=== PATIENT | female | born 1950 | race Two or more races ===

== ENCOUNTER 2023-07-09 09:18 | Inpatient (IN) | payer MEDICARE ==
[~2023-07-09] VITALS: Ht 157.5 cm; Wt 91.9 kg
[2023-07-09] VITALS (40 sets, daily range): BP systolic 90–132; BP diastolic 37–51; PULSE 61–107; RESP 19–41; TEMP 95.2–99.7; O2SAT 94–100
[2023-07-09 10:15] LABS: Basophils # (auto) 0 10 ^3/uL (0-0.2); Basophils % (auto) 0.1 % (0.0-2.0); Eosinophils # (auto) 0 10 ^3/uL (0-0.8); Hematocrit 31.7 % (36.0-46.0); Hemoglobin 10.3 g/dL (12.2-16.2); Lymphocytes # (auto) 0.8 10 ^3/uL (0.4-5.4); Lymphocytes % (auto) 5.4 % (10.0-50.0); Mean Corpuscular Hemoglobin 29.5 pg (28.0-32.0); Mean Corpuscular Hgb Conc. 32.6 g/dL (32.0-36.0); Mean Corpuscular Volume 90.6 fL (80.0-100.0); Monocytes # (auto) 1.5 10 ^3/uL (0-1.3); Monocytes % (auto) 10.3 % (0.0-12.0); Neutrophils # (auto) 11.8 10 ^3/uL (1.6-8.6); Neutrophils % (auto) 84.2 % (37.0-80.0); Red Cell Distribution Width 14.9 % (11.8-14.3); White Blood Cell 14.1 10^3/uL (4.4-10.8)
[2023-07-09 10:31] LABS: Lactic Acid w/Reflex 8.8 mmol/L (0.4-2.0)
[2023-07-09 10:55] LABS: Alanine Aminotransferase 16 U/L (7-40); Alkaline Phosphatase 63 U/L (46-116); Anion Gap 25.00001 (5-15); Aspartate Aminotransferase 25 U/L (13-40); BUN/Creatinine Ratio 14.2 (10.0-20.0); Blood Alcohol < 3.0 mg/dL (<10); Calcium 8.4 mg/dL (8.7-10.4); Chloride 92 mmol/L (98-107); Glucose 145 mg/dL (74-106); Magnesium 2.1 mg/dL (1.6-2.6); Sodium 127 mmol/L (136-145)
[2023-07-09 10:56] LABS: Bilirubin, Total 0.4 mg/dL (0.2-1.0); Total Protein 6.3 g/dL (5.7-8.2)
[2023-07-09 11:03] LABS: Blood Urea Nitrogen 110 mg/dL (9-23); Carbon Dioxide < 10 mmol/L (20-30)
[2023-07-09] MEDS ORDERED: DEXTROSE (50%) 50ML SYRG IV ONE (11:15)
[2023-07-09] MEDS ORDERED: SODIUM BICARBONATE 8.4 % INJ 50ML VIAL IV ONE ×3 (11:15→13:30)
[2023-07-09] MEDS ORDERED: PANTOPRAZOLE 40 MG/10 ML VIAL INJ IV ONE ×2 (11:15→14:15)
[2023-07-09] MEDS ORDERED: ALBUTEROL SULF 2.5 MG/0.5ML(0.5%) NEB SOLN NEB ONE (11:15)
[2023-07-09] MEDS ORDERED: SODIUM CHLORIDE 0.9% 2,700 ML IV ONE (11:15)
[2023-07-09] MEDS ORDERED: CALCIUM GLUC 1,000mg/50ml-NS 50 ML IV ONE (11:15)
[2023-07-09] MEDS ORDERED: VANCOMYCIN PER PHARMACY 1,000 MG IV SCH (11:15)
[2023-07-09] MEDS ORDERED: ACETAMINOPHEN 650 MG RECT SUPP PR ONE (11:15)
[2023-07-09] MEDS ORDERED: SODIUM BICARBONATE 8.4% INJ 50ML SYRINGE IV ONE (11:15)
[2023-07-09] MEDS ORDERED: InsuLIN REG 1unit/0.01ml Soln (100units/ml) IV ONE (11:15)
[2023-07-09] MEDS ORDERED: ATROPINE SULF 1 MG/10ml SYR IV ONE (11:30)
[2023-07-09] MEDS ORDERED: PIPERACILLIN-TAZOB 3.375GM 100 ML IV ONE (11:30)
[2023-07-09 11:39] LABS: Acetaminophen < 2.0 UG/ML (10.0-20.0); Salicylate < 3.0 mg/dL (2.8-20.0)
[2023-07-09] MEDS ORDERED: ETOMIDATE (2MG/ML) 20ML VIAL IV ONE (11:45)
[2023-07-09] MEDS ORDERED: SODIUM ZIRCONIUM CYCL 10 GM PAK GT ONE ×2 (11:45→19:30)
[2023-07-09] MEDS ORDERED: ROCURONIUM 10MG/ML 10ML VIAL IV ONE ×3 (11:45→14:15)
[2023-07-09] MEDS ORDERED: VANCOMYCIN 1GM/250ML 250 ML IV ONE (12:00)
[2023-07-09] MEDS: MIDAZOLAM DRIP 50 mg/50mL 50 ML IV SCH ×4 (12:03→22:53)
[2023-07-09 12:15] LABS: Partial Thromboplastin Time 38.2 SEC (24.5-34.5); Prothrombin Time 10.5 sec (9.3-11.8)
[2023-07-09] MEDS: ALBUMIN 25% 50 ML IV ONE ×2 (12:26→16:37)
[2023-07-09] MEDS ORDERED: NOREPINEPHRINE 8 MG/250ML KIT 250 ML IV ONE (12:36)
[2023-07-09] MEDS: NOREPINEPHRINE 8 MG/250ML KIT 250 ML IV SCH ×2 (12:45→21:03)
[2023-07-09] MEDS: VASOPRESSIN 20 UNITS in SODIUM CHL 0.9% 99 ML IV SCH (13:15)
[2023-07-09] MEDS ORDERED: MORPHINE SULFATE INJ 2 MG/ml SYRG IV PRN (13:15)
[2023-07-09] MEDS: EPINEPHrine HCL 250 ML IV SCH (13:15)
[2023-07-09] MEDS ORDERED: VANCOMYCIN PER PHARMACY 0 MG IV SCH (13:15)
[2023-07-09] MEDS ORDERED: NITROGLYCERIN 0.4 MG SL TAB SL PRN (13:15)
[2023-07-09] MEDS ORDERED: DEXTROSE (50%) 50ML SYRG IV PRN (13:15)
[2023-07-09 13:24] LABS: Amphetamine Screen, Urine Neg (NEGATIVE); Barbiturate Scree,Urine Neg (NEGATIVE); Benzodiazephine Screen, Urine Neg (NEGATIVE); Cocaine Screen, Urine Neg (NEGATIVE)
[2023-07-09 13:24] LABS: Base Excess -25.9 mmol/L (-2.0-2.0)
[2023-07-09 13:25] LABS: Cannabinoid Screen, Urine Neg (NEGATIVE); Opiate Scree,Urine Neg (NEGATIVE); Phencyclidine Screen, Urine Neg (NEGATIVE)
[2023-07-09 13:30] LABS: Urine Bacteria NONE SEEN /hpf (None Seen); Urine Blood 1+ /uL (Negative); Urine Clarity Clear (Clear); Urine Color Colorless (Yellow); Urine Hyaline Cast FEW /lpf (0 - 2); Urine Protein, UAD 2+ (Negative); Urine Specific Gravity 1.015 (1.001-1.035); Urine Urobilinogen Normal (Negative); Urine WBC 4 /hpf (0 - 5)
[2023-07-09] MEDS ORDERED: SODIUM BICARBONATE 50ML VIAL 150 ML in D5W 5% 1,000 ML IV ONE (14:00)
[2023-07-09] MEDS: SODIUM BICARBONATE 50ML VIAL 150 ML in D5W 5% 1,000 ML IV SCH (16:41)
[2023-07-09] MEDS: ACCU-CHEK COMFORT CURVE STRIP VI SCH ×2 (16:52→22:09)
[2023-07-09] MEDS: InsuLIN REG 1unit/0.01ml Soln (100units/ml) SC SCH ×2 (16:52→22:19)
[2023-07-09 17:36] LABS: Chloride 95 mmol/L (98-107); Sodium 136 mmol/L (136-145)
[2023-07-09 17:37] LABS: Anion Gap 30 (5-15); Carbon Dioxide 11 mmol/L (20-30)
[2023-07-09 17:38] LABS: Calcium 7.4 mg/dL (8.7-10.4)
[2023-07-09] MEDS ORDERED: LISI40TA16 PO (17:39)
[2023-07-09] MEDS ORDERED: METO25TA5 PO (17:39)
[2023-07-09] MEDS ORDERED: MELO7.5T7 PO (17:39)
[2023-07-09] MEDS ORDERED: AMLO1TAB22 PO (17:39)
[2023-07-09] MEDS ORDERED: METF-370 PO (17:39)
[2023-07-09] MEDS ORDERED: TRAM50TA2 PO (17:39)
[2023-07-09 17:43] LABS: BUN/Creatinine Ratio 11.8 (10.0-20.0); Glucose 246 mg/dL (74-106)
[2023-07-09] MEDS: CEFEPIME 1GM/ 50ML 50 ML IV SCH (17:55)
[2023-07-09 18:22] LABS: Blood Urea Nitrogen 86 mg/dL (9-23); Potassium 5.8 mmol/L (3.5-5.1)
[2023-07-09] MEDS: PROPOFOL 100 ML IV SCH (18:45)
[2023-07-09 18:51] LABS: Base Excess -16.9 mmol/L (-2.0-2.0)
[2023-07-09] MEDS: fentaNYL Drip 2500mCg/250mlNS 250 ML IV SCH (20:43)
[2023-07-09] MEDS ORDERED: PIPERACILLIN-TAZOB 3.375GM 100 ML IV SCH (22:00)
[2023-07-09] MEDS: HYDROCORTISONE SOD SUCC 100 MG/2ML INJ VIAL IV SCH (22:09)
[2023-07-10] VITALS (107 sets, daily range): BP systolic 101–149; BP diastolic 41–64; PULSE 81–106; RESP 10–31; TEMP 97–99.5; O2SAT 92–100
[2023-07-10] MEDS: VASOPRESSIN 20 UNITS in SODIUM CHL 0.9% 99 ML IV SCH ×3 (00:22→22:08)
[2023-07-10] MEDS: MIDAZOLAM DRIP 50 mg/50mL 50 ML IV SCH ×3 (03:13→10:06)
[2023-07-10 04:11] LABS: Basophils # (auto) 0 10 ^3/uL (0-0.2); Basophils % (auto) 0.1 % (0.0-2.0); Eosinophils # (auto) 0 10 ^3/uL (0-0.8); Hematocrit 28.4 % (36.0-46.0); Hemoglobin 9.6 g/dL (12.2-16.2); Lymphocytes # (auto) 0.3 10 ^3/uL (0.4-5.4); Lymphocytes % (auto) 2.1 % (10.0-50.0); Mean Corpuscular Hemoglobin 29.6 pg (28.0-32.0); Mean Corpuscular Hgb Conc. 33.9 g/dL (32.0-36.0); Mean Corpuscular Volume 87.4 fL (80.0-100.0); Monocytes # (auto) 1.4 10 ^3/uL (0-1.3); Monocytes % (auto) 10.5 % (0.0-12.0); Neutrophils # (auto) 11.4 10 ^3/uL (1.6-8.6); Neutrophils % (auto) 87.3 % (37.0-80.0); Nucleated Red Blood Cells % 0.1 %; Red Blood Cells 3.25 10^6/uL (4.0-5.20); Red Cell Distribution Width 14.7 % (11.8-14.3); White Blood Cell 13.1 10^3/uL (4.4-10.8)
[2023-07-10 04:35] LABS: Alanine Aminotransferase 22 U/L (7-40); Albumin 3.6 g/dL (3.2-4.8); Alkaline Phosphatase 57 U/L (46-116); Anion Gap 28 (5-15); Aspartate Aminotransferase 36 U/L (13-40); BUN/Creatinine Ratio 12.2 (10.0-20.0); Carbon Dioxide 15 mmol/L (20-30); Chloride 91 mmol/L (98-107); Glucose 159 mg/dL (74-106); Sodium 134 mmol/L (136-145)
[2023-07-10 04:36] LABS: Bilirubin, Total 0.7 mg/dL (0.2-1.0); Total Protein 5.8 g/dL (5.7-8.2)
[2023-07-10 04:47] LABS: Blood Urea Nitrogen 87 mg/dL (9-23); Potassium 5.8 mmol/L (3.5-5.1)
[2023-07-10] MEDS ORDERED: SODIUM BICARBONATE 8.4 % INJ 50ML VIAL IV ONE (04:53)
[2023-07-10 05:18] LABS: Base Excess -23.7 mmol/L (-2.0-2.0)
[2023-07-10] MEDS: SODIUM BICARBONATE 50ML VIAL 150 ML in D5W 5% 1,000 ML IV SCH ×2 (05:22→12:15)
[2023-07-10] MEDS: ACCU-CHEK COMFORT CURVE STRIP VI SCH ×4 (06:34→21:34)
[2023-07-10] MEDS: InsuLIN REG 1unit/0.01ml Soln (100units/ml) SC SCH ×4 (06:36→21:43)
[2023-07-10 07:06] LABS: Base Excess -7.2 mmol/L (-2.0-2.0)
[2023-07-10] MEDS: PROPOFOL 100 ML IV SCH ×3 (07:13→22:57)
[2023-07-10] MEDS: EPINEPHrine HCL 250 ML IV SCH (07:13)
[2023-07-10] MEDS: HYDROCORTISONE SOD SUCC 100 MG/2ML INJ VIAL IV SCH ×2 (07:43→21:34)
[2023-07-10] MEDS: PANTOPRAZOLE 40 MG/10 ML VIAL INJ IV SCH (07:44)
[2023-07-10] MEDS ORDERED: SODIUM BICARBONATE 8.4% INJ 50ML SYRINGE IV ONE (07:45)
[2023-07-10] MEDS ORDERED: ALBUTEROL SULF 2.5 MG/0.5ML(0.5%) NEB SOLN NEB ONE (07:45)
[2023-07-10] MEDS ORDERED: DEXTROSE (50%) 50ML SYRG IV ONE (07:45)
[2023-07-10] MEDS ORDERED: InsuLIN REG 1unit/0.01ml Soln (100units/ml) IV ONE (07:45)
[2023-07-10] MEDS: CEFEPIME 1GM/ 50ML 50 ML IV SCH (08:15)
[2023-07-10] MEDS ORDERED: SODIUM BICARBONATE 8.4% INJ 50ML SYRINGE ONE (08:19)
[2023-07-10] MEDS ORDERED: ENOXAPARIN SOD 30 MG/0.3 ML SYRINGE SC SCH (10:00)
[2023-07-10] MEDS ORDERED: SODIUM CHLORIDE 0.9% 1,000 ML IV ONE (10:00)
[2023-07-10] MEDS: AMIODARONE HCL 200 MG TAB PO SCH ×2 (11:15→21:35)
[2023-07-10 12:08] LABS: Chloride 92 mmol/L (98-107); Potassium 5.3 mmol/L (3.5-5.1); Sodium 134 mmol/L (136-145)
[2023-07-10 12:09] LABS: Anion Gap 23 (5-15); Calcium 6.6 mg/dL (8.7-10.4); Carbon Dioxide 19 mmol/L (20-30)
[2023-07-10 12:14] LABS: BUN/Creatinine Ratio 10.7 (10.0-20.0); Glucose 198 mg/dL (74-106)
[2023-07-10 12:17] LABS: Blood Urea Nitrogen 73 mg/dL (9-23)
[2023-07-10] MEDS ORDERED: HEPARIN 1,000 UNITS/ml 1ML VIAL IV ONE (13:15)
[2023-07-10] MEDS: fentaNYL Drip 2500mCg/250mlNS 250 ML IV SCH (17:27)
[2023-07-10] MEDS ORDERED: VANCOMYCIN 750mg/250ml 250 ML IV ONE (18:15)
[2023-07-10 18:29] LABS: Base Excess 2.2 mmol/L (-2.0-2.0)
[2023-07-10 19:18] LABS: Chloride 98 mmol/L (98-107); Potassium 3.9 mmol/L (3.5-5.1); Sodium 139 mmol/L (136-145)
[2023-07-10 19:19] LABS: Anion Gap 13 (5-15); Calcium 7.2 mg/dL (8.7-10.4); Carbon Dioxide 28 mmol/L (20-30)
[2023-07-10 19:24] LABS: BUN/Creatinine Ratio 10.4 (10.0-20.0); Blood Urea Nitrogen 39 mg/dL (9-23); Glucose 139 mg/dL (74-106)
[2023-07-11] VITALS (104 sets, daily range): BP systolic 89–193; BP diastolic 36–67; PULSE 57–102; RESP 16–26; TEMP 97.7–99.3; O2SAT 90–100
[2023-07-11] MEDS: SODIUM BICARBONATE 50ML VIAL 150 ML in D5W 5% 1,000 ML IV SCH (03:01)
[2023-07-11] MEDS: fentaNYL Drip 2500mCg/250mlNS 250 ML IV SCH ×2 (03:02→12:58)
[2023-07-11 04:49] LABS: Basophils # (auto) 0 10 ^3/uL (0-0.2); Basophils % (auto) 0.1 % (0.0-2.0); Eosinophils # (auto) 0 10 ^3/uL (0-0.8); Hematocrit 25.5 % (36.0-46.0); Hemoglobin 8.7 g/dL (12.2-16.2); Lymphocytes # (auto) 0.4 10 ^3/uL (0.4-5.4); Lymphocytes % (auto) 4.8 % (10.0-50.0); Mean Corpuscular Volume 85.5 fL (80.0-100.0); Monocytes # (auto) 0.8 10 ^3/uL (0-1.3); Monocytes % (auto) 10.6 % (0.0-12.0); Neutrophils # (auto) 6.4 10 ^3/uL (1.6-8.6); Neutrophils % (auto) 84.5 % (37.0-80.0); Nucleated Red Blood Cells % 0.2 %; Red Blood Cells 2.99 10^6/uL (4.0-5.20); Red Cell Distribution Width 14.7 % (11.8-14.3); White Blood Cell 7.6 10^3/uL (4.4-10.8)
[2023-07-11 04:56] LABS: Alanine Aminotransferase 19 U/L (7-40); Alkaline Phosphatase 55 U/L (46-116); Anion Gap 9 (5-15); Aspartate Aminotransferase 34 U/L (13-40); BUN/Creatinine Ratio 10.9 (10.0-20.0); Bilirubin, Total 1.2 mg/dL (0.2-1.0); Blood Urea Nitrogen 44 mg/dL (9-23); Calcium 6.8 mg/dL (8.5-10.1); Carbon Dioxide 33 mmol/L (20-30); Chloride 96 mmol/L (98-107); Glucose 161 mg/dL (74-106); Potassium 3.9 mmol/L (3.5-5.1); Sodium 138 mmol/L (136-145)
[2023-07-11] MEDS: NOREPINEPHRINE 8 MG/250ML KIT 250 ML IV SCH (05:25)
[2023-07-11] MEDS: PROPOFOL 100 ML IV SCH ×2 (05:25→12:04)
[2023-07-11] MEDS: ACCU-CHEK COMFORT CURVE STRIP VI SCH ×4 (06:37→22:11)
[2023-07-11] MEDS: InsuLIN REG 1unit/0.01ml Soln (100units/ml) SC SCH ×4 (06:45→22:12)
[2023-07-11 08:44] LABS: Base Excess 8.9 mmol/L (-2.0-2.0)
[2023-07-11] MEDS ORDERED: Glucerna 1.2 Cal 1Liter BOTTLE GT SCH (09:30)
[2023-07-11] MEDS: VASOPRESSIN 20 UNITS in SODIUM CHL 0.9% 99 ML IV SCH ×2 (09:43→20:50)
[2023-07-11 10:16] LABS: Hepatitis B Surface Antibody Negative (Negative)
[2023-07-11] MEDS: PANTOPRAZOLE 40 MG/10 ML VIAL INJ IV SCH (10:22)
[2023-07-11] MEDS: LINEZOLID 600MG/300ML 300 ML IV SCH ×2 (10:22→22:06)
[2023-07-11] MEDS: CEFEPIME 1GM/ 50ML 50 ML IV SCH (10:22)
[2023-07-11] MEDS: HYDROCORTISONE SOD SUCC 100 MG/2ML INJ VIAL IV SCH ×2 (10:22→22:06)
[2023-07-11 10:28] LABS: Hepatitis B Surface Antigen Negative (Negative)
[2023-07-11] MEDS: HEPARIN SODIUM (PORCINE) 5000 UNITS/ML 1ML VIAL SC SCH ×2 (10:29→22:08)
[2023-07-11] MEDS: MIDAZOLAM DRIP 50 mg/50mL 50 ML IV SCH (11:45)
[2023-07-11] MEDS: FREE WATER GT SCH ×2 (12:08→17:21)
[2023-07-11] MEDS ORDERED: SODIUM CHL 0.9% 1000 ML BAG XX ONE (12:15)
[2023-07-11 12:41] LABS: Uric Acid 6.4 mg/dL (3.1-7.8)
[2023-07-11 12:44] LABS: Phosphorus 4.7 mg/dL (2.4-5.1)
[2023-07-11] MEDS: EPINEPHrine HCL 250 ML IV SCH (13:15)
[2023-07-11 13:45] LABS: % Iron Saturation 13.8 % (15-50)
[2023-07-11] MEDS ORDERED: ALBUMIN 25% 100 ML IV PRN (16:15)
[2023-07-11] MEDS ORDERED: EPOETIN ALFA-EPBX 10,000 UNIT/1ML VIAL SC ONE (21:00)
[2023-07-12] VITALS (104 sets, daily range): BP systolic 117–225; BP diastolic 48–111; PULSE 69–117; RESP 18–20; TEMP 98.4–99; O2SAT 92–100
[2023-07-12] MEDS: AMIODARONE HCL 200 MG TAB PO SCH ×2 (00:15→10:00)
[2023-07-12] MEDS: FREE WATER GT SCH ×4 (00:15→17:52)
[2023-07-12] MEDS: PROPOFOL 100 ML IV SCH ×3 (03:15→23:30)
[2023-07-12] MEDS: fentaNYL Drip 2500mCg/250mlNS 250 ML IV SCH (03:21)
[2023-07-12 04:41] LABS: Mean Corpuscular Hemoglobin 29.3 pg (28.0-32.0); White Blood Cell 9.2 10^3/uL (4.4-10.8)
[2023-07-12 04:47] LABS: Basophils # (auto) 0 10 ^3/uL (0-0.2); Basophils % (auto) 0.1 % (0.0-2.0); Eosinophils # (auto) 0 10 ^3/uL (0-0.8); Hematocrit 26.9 % (36.0-46.0); Lymphocytes # (auto) 0.4 10 ^3/uL (0.4-5.4); Lymphocytes % (auto) 4.2 % (10.0-50.0); Mean Corpuscular Hgb Conc. 33.6 g/dL (32.0-36.0); Mean Corpuscular Volume 87.1 fL (80.0-100.0); Monocytes # (auto) 0.8 10 ^3/uL (0-1.3); Monocytes % (auto) 8.8 % (0.0-12.0); Neutrophils % (auto) 86.9 % (37.0-80.0); Nucleated Red Blood Cells % 0.2 %; Red Blood Cells 3.09 10^6/uL (4.0-5.20)
[2023-07-12 04:57] LABS: Anion Gap 9 (5-15); Carbon Dioxide 30 mmol/L (20-30); Chloride 97 mmol/L (98-107); Potassium 3.6 mmol/L (3.5-5.1); Sodium 136 mmol/L (136-145)
[2023-07-12 04:59] LABS: Calcium 7.3 mg/dL (8.7-10.4)
[2023-07-12 05:03] LABS: Glucose 295 mg/dL (74-106)
[2023-07-12 05:04] LABS: BUN/Creatinine Ratio 8.9 (10.0-20.0)
[2023-07-12 05:07] LABS: Blood Urea Nitrogen 29 mg/dL (9-23)
[2023-07-12] MEDS: ACCU-CHEK COMFORT CURVE STRIP VI SCH ×4 (06:20→23:30)
[2023-07-12] MEDS: InsuLIN REG 1unit/0.01ml Soln (100units/ml) SC SCH ×4 (06:24→23:34)
[2023-07-12] MEDS: hydrALAZINE HCL 20 MG/ML VL IV PRN (07:30)
[2023-07-12 07:46] LABS: Base Excess 4.7 mmol/L (-2.0-2.0)
[2023-07-12] MEDS: VASOPRESSIN 20 UNITS in SODIUM CHL 0.9% 99 ML IV SCH ×2 (07:57→19:04)
[2023-07-12] MEDS ORDERED: METOPROLOL TARTRATE 1MG/1ML-5ML VIAL IV ONE (08:00)
[2023-07-12] MEDS: LINEZOLID 600MG/300ML 300 ML IV SCH (08:21)
[2023-07-12] MEDS ORDERED: Glucerna 1.2 Cal 1Liter BOTTLE GT SCH (09:30)
[2023-07-12] MEDS ORDERED: hydrALAZINE HCL 20 MG/ML VL IV PRN (09:30)
[2023-07-12] MEDS: PANTOPRAZOLE 40 MG/10 ML VIAL INJ IV SCH (09:53)
[2023-07-12] MEDS: HEPARIN SODIUM (PORCINE) 5000 UNITS/ML 1ML VIAL SC SCH ×2 (09:53→21:37)
[2023-07-12] MEDS: cefTRIAXone 1GM/50ML D5W 50 ML IV SCH (10:48)
[2023-07-12] MEDS: METOPROLOL TARTRATE 50 MG TAB PO SCH ×2 (10:48→21:37)
[2023-07-12] MEDS ORDERED: FUROSEMIDE 100 MG/10ML VIAL IV ONE (11:15)
[2023-07-12] MEDS: MIDAZOLAM DRIP 50 mg/50mL 50 ML IV SCH (11:45)
[2023-07-12] MEDS: NOREPINEPHRINE 8 MG/250ML KIT 250 ML IV SCH (12:45)
[2023-07-12] MEDS: EPINEPHrine HCL 250 ML IV SCH (13:15)
[2023-07-13] VITALS (108 sets, daily range): BP systolic 82–216; BP diastolic 38–118; PULSE 64–115; RESP 18–26; TEMP 98.2–99.1; O2SAT 91–96
[2023-07-13 04:59] LABS: Basophils # (auto) 0 10 ^3/uL (0-0.2); Basophils % (auto) 0.2 % (0.0-2.0); Eosinophils # (auto) 0 10 ^3/uL (0-0.8); Eosinophils % (auto) 0.3 % (0.0-7.0); Hematocrit 30.8 % (36.0-46.0); Hemoglobin 10.3 g/dL (12.2-16.2); Lymphocytes # (auto) 1.2 10 ^3/uL (0.4-5.4); Lymphocytes % (auto) 12.6 % (10.0-50.0); Mean Corpuscular Hemoglobin 29.3 pg (28.0-32.0); Mean Corpuscular Hgb Conc. 33.6 g/dL (32.0-36.0); Mean Corpuscular Volume 87.2 fL (80.0-100.0); Monocytes # (auto) 0.8 10 ^3/uL (0-1.3); Monocytes % (auto) 8.2 % (0.0-12.0); Neutrophils # (auto) 7.8 10 ^3/uL (1.6-8.6); Neutrophils % (auto) 78.7 % (37.0-80.0); Nucleated Red Blood Cells % 0.1 %; Red Blood Cells 3.53 10^6/uL (4.0-5.20); White Blood Cell 9.9 10^3/uL (4.4-10.8)
[2023-07-13 05:08] LABS: Chloride 97 mmol/L (98-107)
[2023-07-13 05:10] LABS: Calcium 7.9 mg/dL (8.5-10.1)
[2023-07-13 05:14] LABS: BUN/Creatinine Ratio 10.5 (10.0-20.0); Blood Urea Nitrogen 37 mg/dL (9-23); Glucose 195 mg/dL (74-106)
[2023-07-13 05:27] LABS: Carbon Dioxide 32 mmol/L (20-30)
[2023-07-13] MEDS: ACCU-CHEK COMFORT CURVE STRIP VI SCH ×3 (05:47→18:44)
[2023-07-13] MEDS: InsuLIN REG 1unit/0.01ml Soln (100units/ml) SC SCH ×3 (05:51→18:45)
[2023-07-13] MEDS: FREE WATER GT SCH ×4 (05:54→18:44)
[2023-07-13] MEDS: VASOPRESSIN 20 UNITS in SODIUM CHL 0.9% 99 ML IV SCH (06:11)
[2023-07-13 06:16] LABS: Potassium 2.9 mmol/L (3.5-5.1)
[2023-07-13] MEDS: hydrALAZINE HCL 20 MG/ML VL IV PRN ×2 (06:32→13:31)
[2023-07-13 06:54] LABS: Anion Gap 8 (5-15); Sodium 137 mmol/L (136-145)
[2023-07-13] MEDS ORDERED: POTASSIUM EFFERVESENT TAB 25 MEQ GT ONE (07:30)
[2023-07-13 07:41] LABS: Base Excess 7.7 mmol/L (-2.0-2.0)
[2023-07-13] MEDS: cefTRIAXone 1GM/50ML D5W 50 ML IV SCH (08:51)
[2023-07-13] MEDS: PANTOPRAZOLE 40 MG/10 ML VIAL INJ IV SCH (09:34)
[2023-07-13] MEDS: METOPROLOL TARTRATE 50 MG TAB PO SCH ×2 (09:34→22:56)
[2023-07-13] MEDS: AMIODARONE HCL 200 MG TAB PO SCH (09:35)
[2023-07-13] MEDS: HEPARIN SODIUM (PORCINE) 5000 UNITS/ML 1ML VIAL SC SCH ×2 (10:00→22:57)
[2023-07-13] MEDS: MIDAZOLAM DRIP 50 mg/50mL 50 ML IV SCH (11:45)
[2023-07-13] MEDS: NOREPINEPHRINE 8 MG/250ML KIT 250 ML IV SCH (12:45)
[2023-07-13] MEDS: PROPOFOL 100 ML IV SCH (14:37)
[2023-07-13] MEDS ORDERED: FUROSEMIDE 40 MG/4 ML VIAL IV ONE (15:00)
[2023-07-13] MEDS: fentaNYL Drip 2500mCg/250mlNS 250 ML IV SCH (18:45)
[2023-07-14] VITALS (111 sets, daily range): BP systolic 73–206; BP diastolic 32–155; PULSE 61–109; RESP 12–25; TEMP 98.8–99.5; O2SAT 88–100
[2023-07-14] MEDS: ACCU-CHEK COMFORT CURVE STRIP VI SCH ×5 (00:10→23:29)
[2023-07-14] MEDS: InsuLIN REG 1unit/0.01ml Soln (100units/ml) SC SCH ×5 (00:14→23:27)
[2023-07-14] MEDS: FREE WATER GT SCH ×5 (00:17→23:30)
[2023-07-14 04:20] LABS: Calcium 8.4 mg/dL (8.7-10.4); Chloride 97 mmol/L (98-107); Sodium 139 mmol/L (136-145)
[2023-07-14 04:21] LABS: Anion Gap 11 (5-15); Carbon Dioxide 31 mmol/L (20-30)
[2023-07-14 04:26] LABS: BUN/Creatinine Ratio 10.4 (10.0-20.0); Blood Urea Nitrogen 40 mg/dL (9-23)
[2023-07-14 04:36] LABS: Potassium 2.8 mmol/L (3.5-5.1)
[2023-07-14 04:45] LABS: Glucose 261 mg/dL (74-106)
[2023-07-14] MEDS: hydrALAZINE HCL 20 MG/ML VL IV PRN ×2 (06:00→14:32)
[2023-07-14] MEDS ORDERED: POTASSIUM EFFERVESENT TAB 25 MEQ GT ONE (06:15)
[2023-07-14] MEDS ORDERED: SODIUM CHL 0.9% 1000 ML BAG XX ONE (07:30)
[2023-07-14 07:39] LABS: Base Excess 8.5 mmol/L (-2.0-2.0)
[2023-07-14] MEDS ORDERED: POTASSIUM CHL 20MEQ/100ML 100 ML IV ONE (09:30)
[2023-07-14] MEDS: PANTOPRAZOLE 40 MG/10 ML VIAL INJ IV SCH (09:57)
[2023-07-14] MEDS: cefTRIAXone 1GM/50ML D5W 50 ML IV SCH (09:57)
[2023-07-14] MEDS: METOPROLOL TARTRATE 50 MG TAB PO SCH ×2 (09:58→22:31)
[2023-07-14] MEDS: MIDAZOLAM DRIP 50 mg/50mL 50 ML IV SCH (09:59)
[2023-07-14] MEDS: PROPOFOL 100 ML IV SCH ×2 (10:00→20:17)
[2023-07-14] MEDS: fentaNYL Drip 2500mCg/250mlNS 250 ML IV SCH (10:00)
[2023-07-14] MEDS: NOREPINEPHRINE 8 MG/250ML KIT 250 ML IV SCH (11:47)
[2023-07-14 20:52] LABS: Magnesium 1.6 mg/dL (1.6-2.6)
[2023-07-14] MEDS ORDERED: EPOETIN ALFA-EPBX 10,000 UNIT/1ML VIAL SC ONE (21:00)
[2023-07-14] MEDS: HEPARIN SODIUM (PORCINE) 5000 UNITS/ML 1ML VIAL SC SCH ×2 (22:00→22:34)
[2023-07-14] MEDS ORDERED: MAGNESIUM SULFATE 1GM/100ML 100 ML IV ONE (22:00)
[2023-07-14] MEDS: POTASSIUM CHL 20MEQ/100ML 100 ML IV SCH ×2 (22:37→23:30)
[2023-07-15] VITALS (108 sets, daily range): BP systolic 75–204; BP diastolic 31–119; PULSE 64–111; RESP 9–22; TEMP 97.5–99.3; O2SAT 92–100
[2023-07-15 04:26] LABS: Basophils # (auto) 0 10 ^3/uL (0-0.2); Basophils % (auto) 0.2 % (0.0-2.0); Eosinophils # (auto) 0 10 ^3/uL (0-0.8); Eosinophils % (auto) 0.3 % (0.0-7.0); Hematocrit 30.3 % (36.0-46.0); Hemoglobin 10.4 g/dL (12.2-16.2); Lymphocytes # (auto) 0.9 10 ^3/uL (0.4-5.4); Lymphocytes % (auto) 9.2 % (10.0-50.0); Mean Corpuscular Hgb Conc. 34.2 g/dL (32.0-36.0); Monocytes # (auto) 1.8 10 ^3/uL (0-1.3); Monocytes % (auto) 17.9 % (0.0-12.0); Neutrophils # (auto) 7.1 10 ^3/uL (1.6-8.6); Neutrophils % (auto) 72.4 % (37.0-80.0); Nucleated Red Blood Cells % 0.1 %; Red Blood Cells 3.45 10^6/uL (4.0-5.20); Red Cell Distribution Width 14.6 % (11.8-14.3); White Blood Cell 9.8 10^3/uL (4.4-10.8)
[2023-07-15 04:39] LABS: % Iron Saturation 21.5 % (15-50)
[2023-07-15 04:44] LABS: Anion Gap 8 (5-15); Carbon Dioxide 31 mmol/L (20-30); Chloride 102 mmol/L (98-107); Potassium 3.2 mmol/L (3.5-5.1); Sodium 141 mmol/L (136-145)
[2023-07-15 04:45] LABS: Calcium 8.6 mg/dL (8.7-10.4)
[2023-07-15 04:49] LABS: Glucose 228 mg/dL (74-106)
[2023-07-15 04:50] LABS: BUN/Creatinine Ratio 14.2 (10.0-20.0); Blood Urea Nitrogen 47 mg/dL (9-23); Magnesium 1.8 mg/dL (1.6-2.6)
[2023-07-15] MEDS: InsuLIN REG 1unit/0.01ml Soln (100units/ml) SC SCH ×4 (05:21→23:49)
[2023-07-15] MEDS: ACCU-CHEK COMFORT CURVE STRIP VI SCH ×4 (05:21→23:47)
[2023-07-15] MEDS: PROPOFOL 100 ML IV SCH (05:23)
[2023-07-15] MEDS: FREE WATER GT SCH ×4 (05:24→23:47)
[2023-07-15] MEDS ORDERED: SODIUM CHL 0.9% 1000 ML BAG XX ONE (07:00)
[2023-07-15] MEDS ORDERED: MAGNESIUM SULFATE 1GM/100ML 100 ML IV ONE (08:45)
[2023-07-15] MEDS: POTASSIUM EFFERVESENT TAB 25 MEQ GT SCH (09:20)
[2023-07-15] MEDS ORDERED: CATHFLO ACTIVASE (ALTEPLASE) 2 MG VIAL IV ONE (09:30)
[2023-07-15] MEDS: cefTRIAXone 1GM/50ML D5W 50 ML IV SCH (09:50)
[2023-07-15] MEDS: PANTOPRAZOLE 40 MG/10 ML VIAL INJ IV SCH (09:50)
[2023-07-15] MEDS: HEPARIN SODIUM (PORCINE) 5000 UNITS/ML 1ML VIAL SC SCH ×2 (09:51→22:01)
[2023-07-15] MEDS: METOPROLOL TARTRATE 50 MG TAB PO SCH ×2 (09:52→21:57)
[2023-07-15] MEDS: MIDAZOLAM DRIP 50 mg/50mL 50 ML IV SCH (11:45)
[2023-07-15] MEDS: hydrALAZINE HCL 20 MG/ML VL IV PRN (11:59)
[2023-07-15] MEDS: NOREPINEPHRINE 8 MG/250ML KIT 250 ML IV SCH (12:45)
[2023-07-15] MEDS ORDERED: NITROGLYCERIN 50MG/250ML 250 ML IV ONE (13:52)
[2023-07-15 14:00] LABS: Protein, Urine 55.5 mg/dL (0.0-11.9)
[2023-07-15 14:03] LABS: Creatinine, Urine 23.11 mg/dL (30.0-125.0); Urine Protein/Creatinine Ratio 2.4
[2023-07-15] MEDS: NITROGLYCERIN 50MG/250ML 250 ML IV SCH (14:51)
[2023-07-15] MEDS ORDERED: METOPROLOL TARTRATE 1MG/1ML-5ML VIAL IV PRN (15:30)
[2023-07-15 15:48] LABS: Base Excess 2.6 mmol/L (-2.0-2.0)
[2023-07-15] MEDS: fentaNYL Drip 2500mCg/250mlNS 250 ML IV SCH (18:45)
[2023-07-15] MEDS ORDERED: EPOETIN ALFA-EPBX 10,000 UNIT/1ML VIAL SC ONE (21:00)
[2023-07-16] VITALS (107 sets, daily range): BP systolic 75–185; BP diastolic 29–118; PULSE 69–157; RESP 15–29; TEMP 93.7–99.7; O2SAT 90–99
[2023-07-16 04:24] LABS: Hematocrit 33.4 % (36.0-46.0); Hemoglobin 11.1 g/dL (12.2-16.2); Mean Corpuscular Hemoglobin 29.7 pg (28.0-32.0); Mean Corpuscular Hgb Conc. 33.3 g/dL (32.0-36.0); Mean Corpuscular Volume 89.2 fL (80.0-100.0); Red Blood Cells 3.74 10^6/uL (4.0-5.20); Red Cell Distribution Width 14.7 % (11.8-14.3); White Blood Cell 10.4 10^3/uL (4.4-10.8)
[2023-07-16 04:31] LABS: Chloride 105 mmol/L (98-107); Potassium 3.1 mmol/L (3.5-5.1)
[2023-07-16 04:32] LABS: Anion Gap 11 (5-15); Carbon Dioxide 31 mmol/L (20-30)
[2023-07-16 04:37] LABS: BUN/Creatinine Ratio 18.2 (10.0-20.0); Blood Urea Nitrogen 41 mg/dL (9-23); Glucose 229 mg/dL (74-106)
[2023-07-16 04:40] LABS: Phosphorus 3.9 mg/dL (2.4-5.1)
[2023-07-16 04:48] LABS: Basophils % (manual) 0 (0.0-2.0); Blast Cells 0; Metamyelocytes % 0; Promyelocytes % 0; Reactive Lymphocytes 0
[2023-07-16 04:59] LABS: Sodium 147 mmol/L (136-145)
[2023-07-16 05:09] LABS: Magnesium 1.8 mg/dL (1.6-2.6)
[2023-07-16] MEDS ORDERED: POTASSIUM CHL 20MEQ/100ML 100 ML IV ONE (05:45)
[2023-07-16] MEDS: FREE WATER GT SCH ×5 (05:47→21:36)
[2023-07-16] MEDS: ACCU-CHEK COMFORT CURVE STRIP VI SCH ×3 (05:47→18:26)
[2023-07-16] MEDS: InsuLIN REG 1unit/0.01ml Soln (100units/ml) SC SCH ×3 (05:52→18:26)
[2023-07-16 08:38] LABS: Band Neutrophils % (manual) 6; Eosinophils % (manual) 1 (0-7); Lymphocytes % (manual) 9 (10.0-50.0); Monocytes % (manual) 15 (0-12); Myelocytes % 1
[2023-07-16 08:40] LABS: Anisocytosis Slight; Platelet Estimate Adequate; Tear Drop Cells FEW
[2023-07-16] MEDS: cefTRIAXone 1GM/50ML D5W 50 ML IV SCH (09:59)
[2023-07-16] MEDS: METOPROLOL TARTRATE 50 MG TAB PO SCH ×2 (10:00→21:35)
[2023-07-16] MEDS: PANTOPRAZOLE 40 MG/10 ML VIAL INJ IV SCH (10:08)
[2023-07-16] MEDS: HEPARIN SODIUM (PORCINE) 5000 UNITS/ML 1ML VIAL SC SCH ×2 (10:12→21:36)
[2023-07-16] MEDS: MIDAZOLAM DRIP 50 mg/50mL 50 ML IV SCH (11:45)
[2023-07-16] MEDS ORDERED: AMIODARONE HCL 200 MG TAB PO ONE (11:45)
[2023-07-16] MEDS ORDERED: MAGNESIUM SULFATE 1GM/100ML 100 ML IV ONE (11:45)
[2023-07-16] MEDS: POTASSIUM EFFERVESENT TAB 25 MEQ GT SCH (11:56)
[2023-07-16] MEDS: BUMETANIDE INJECTION 12.5 MG in GIVE UN-DILUTED 0 ML IV SCH ×2 (11:57→20:44)
[2023-07-16] MEDS: NOREPINEPHRINE 8 MG/250ML KIT 250 ML IV SCH (12:45)
[2023-07-16] MEDS: NITROGLYCERIN 50MG/250ML 250 ML IV SCH (13:15)
[2023-07-16] MEDS: fentaNYL Drip 2500mCg/250mlNS 250 ML IV SCH (18:45)
[2023-07-16] MEDS ORDERED: BUMETANIDE INJECTION 50 ML ONE (20:34)
[2023-07-16] MEDS: AMIODARONE HCL 200 MG TAB PO SCH (21:36)
[2023-07-17] VITALS (71 sets, daily range): BP systolic 110–171; BP diastolic 36–72; PULSE 78–106; RESP 17–35; TEMP 92.7–99.7; O2SAT 88–100
[2023-07-17] MEDS: ACCU-CHEK COMFORT CURVE STRIP VI SCH ×4 (00:13→19:24)
[2023-07-17] MEDS: InsuLIN REG 1unit/0.01ml Soln (100units/ml) SC SCH ×4 (00:16→17:46)
[2023-07-17] MEDS: FREE WATER GT SCH ×6 (02:11→21:38)
[2023-07-17 04:10] LABS: Hemoglobin 11.2 g/dL (12.2-16.2); Mean Corpuscular Hemoglobin 28.9 pg (28.0-32.0); Mean Corpuscular Hgb Conc. 32.2 g/dL (32.0-36.0); Mean Corpuscular Volume 89.8 fL (80.0-100.0); Red Blood Cells 3.89 10^6/uL (4.0-5.20); Red Cell Distribution Width 15.1 % (11.8-14.3)
[2023-07-17 04:18] LABS: Chloride 101 mmol/L (98-107); Sodium 146 mmol/L (136-145)
[2023-07-17 04:19] LABS: Anion Gap 15 (5-15); Carbon Dioxide 30 mmol/L (20-30)
[2023-07-17 04:20] LABS: Calcium 9.4 mg/dL (8.7-10.4)
[2023-07-17 04:24] LABS: BUN/Creatinine Ratio 20.5 (10.0-20.0); Blood Urea Nitrogen 39 mg/dL (9-23); Glucose 223 mg/dL (74-106)
[2023-07-17 04:28] LABS: Basophils % (manual) 0 (0.0-2.0); Blast Cells 0; Metamyelocytes % 0; Myelocytes % 0; Promyelocytes % 0; Reactive Lymphocytes 0
[2023-07-17 05:51] LABS: Potassium 2.8 mmol/L (3.5-5.1)
[2023-07-17 07:21] LABS: Base Excess 5.9 mmol/L (-2.0-2.0)
[2023-07-17] MEDS: POTASSIUM CHL 20MEQ/100ML 100 ML IV SCH ×2 (08:00→08:09)
[2023-07-17 08:55] LABS: Band Neutrophils % (manual) 4; Eosinophils % (manual) 1 (0-7); Lymphocytes % (manual) 11 (10.0-50.0); Monocytes % (manual) 19 (0-12)
[2023-07-17 08:56] LABS: Anisocytosis Slight; Tear Drop Cells FEW
[2023-07-17 08:57] LABS: Platelet Estimate Adequate
[2023-07-17] MEDS: METOPROLOL TARTRATE 50 MG TAB PO SCH ×2 (09:13→22:20)
[2023-07-17] MEDS: PANTOPRAZOLE 40 MG/10 ML VIAL INJ IV SCH (09:14)
[2023-07-17] MEDS: cefTRIAXone 1GM/50ML D5W 50 ML IV SCH (09:15)
[2023-07-17] MEDS: HEPARIN SODIUM (PORCINE) 5000 UNITS/ML 1ML VIAL SC SCH ×2 (09:15→22:05)
[2023-07-17] MEDS: POTASSIUM EFFERVESENT TAB 25 MEQ GT SCH (09:15)
[2023-07-17] MEDS: AMIODARONE HCL 200 MG TAB PO SCH ×2 (09:16→22:20)
[2023-07-17 09:52] LABS: Base Excess 5.3 mmol/L (-2.0-2.0)
[2023-07-17] MEDS: MAGNESIUM SULFATE 1GM/100ML 100 ML IV SCH ×3 (10:50→12:46)
[2023-07-17] MEDS: MIDAZOLAM DRIP 50 mg/50mL 50 ML IV SCH (11:45)
[2023-07-17] MEDS: SOD CHL 0.45% 1,000 ML IV SCH (12:09)
[2023-07-17] MEDS: NOREPINEPHRINE 8 MG/250ML KIT 250 ML IV SCH (12:45)
[2023-07-17] MEDS: NITROGLYCERIN 50MG/250ML 250 ML IV SCH (13:15)
[2023-07-17 17:28] LABS: Potassium 3.6 mmol/L (3.5-5.1)
[2023-07-17 17:35] LABS: Magnesium 2.4 mg/dL (1.6-2.6)
[2023-07-17] MEDS: BUMETANIDE 2.5mg/10ml (0.25 mg/ml) INJ IV SCH (17:47)
[2023-07-17] MEDS: fentaNYL Drip 2500mCg/250mlNS 250 ML IV SCH (18:45)
[2023-07-18] VITALS (36 sets, daily range): BP systolic 101–172; BP diastolic 36–65; PULSE 83–108; RESP 15–34; TEMP 97.8–99.9; O2SAT 88–100
[2023-07-18] MEDS: ACCU-CHEK COMFORT CURVE STRIP VI SCH ×5 (00:14→23:51)
[2023-07-18] MEDS: InsuLIN REG 1unit/0.01ml Soln (100units/ml) SC SCH ×5 (00:16→23:53)
[2023-07-18] MEDS: SOD CHL 0.45% 1,000 ML IV SCH ×3 (01:42→16:18)
[2023-07-18] MEDS: FREE WATER GT SCH ×6 (01:43→22:00)
[2023-07-18 04:28] LABS: Basophils # (auto) 0 10 ^3/uL (0-0.2); Basophils % (auto) 0.1 % (0.0-2.0); Eosinophils # (auto) 0 10 ^3/uL (0-0.8); Eosinophils % (auto) 0.1 % (0.0-7.0); Hematocrit 36.9 % (36.0-46.0); Hemoglobin 11.5 g/dL (12.2-16.2); Lymphocytes # (auto) 1.2 10 ^3/uL (0.4-5.4); Lymphocytes % (auto) 7.1 % (10.0-50.0); Mean Corpuscular Hemoglobin 28.5 pg (28.0-32.0); Mean Corpuscular Hgb Conc. 31.1 g/dL (32.0-36.0); Mean Corpuscular Volume 91.6 fL (80.0-100.0); Monocytes # (auto) 2.3 10 ^3/uL (0-1.3); Monocytes % (auto) 13.2 % (0.0-12.0); Neutrophils % (auto) 79.5 % (37.0-80.0); Nucleated Red Blood Cells % 0.2 %; Red Blood Cells 4.03 10^6/uL (4.0-5.20); Red Cell Distribution Width 15.4 % (11.8-14.3); White Blood Cell 17.6 10^3/uL (4.4-10.8)
[2023-07-18 04:44] LABS: Alanine Aminotransferase 16 U/L (7-40); Albumin 3.9 g/dL (3.2-4.8); Alkaline Phosphatase 89 U/L (46-116); Anion Gap 15 (5-15); Aspartate Aminotransferase 14 U/L (13-40); BUN/Creatinine Ratio 20.1 (10.0-20.0); Blood Urea Nitrogen 38 mg/dL (9-23); Calcium 9.3 mg/dL (8.7-10.4); Carbon Dioxide 31 mmol/L (20-30); Chloride 101 mmol/L (98-107); Glucose 279 mg/dL (74-106); Potassium 3.3 mmol/L (3.5-5.1); Sodium 147 mmol/L (136-145)
[2023-07-18 04:45] LABS: Bilirubin, Total 0.7 mg/dL (0.2-1.0); Total Protein 6.9 g/dL (5.7-8.2)
[2023-07-18] MEDS: BUMETANIDE 2.5mg/10ml (0.25 mg/ml) INJ IV SCH (05:06)
[2023-07-18] MEDS ORDERED: ALBUTEROL MEDNEB 2.5 mg/3ml NEB ONE (06:00)
[2023-07-18] MEDS ORDERED: ALBUTEROL SULF 2.5 MG/0.5ML(0.5%) NEB SOLN NEB SCH (06:00)
[2023-07-18] MEDS: IPRATROPIUM BROM 0.5 MG/2.5ML INH SOL NEB SCH ×5 (06:18→22:46)
[2023-07-18] MEDS ORDERED: POTASSIUM CHL 20MEQ/100ML 100 ML IV ONE (06:45)
[2023-07-18] MEDS: POTASSIUM CHL 20MEQ/100ML 100 ML IV SCH ×2 (08:22→10:22)
[2023-07-18 08:52] LABS: Base Excess 6.6 mmol/L (-2.0-2.0)
[2023-07-18] MEDS: ALBUTEROL MEDNEB 2.5 mg/3ml NEB NEB SCH ×4 (09:10→22:46)
[2023-07-18] MEDS: cefTRIAXone 1GM/50ML D5W 50 ML IV SCH (09:25)
[2023-07-18] MEDS: PANTOPRAZOLE 40 MG/10 ML VIAL INJ IV SCH (09:25)
[2023-07-18] MEDS: hydrALAZINE HCL 20 MG/ML VL IV PRN (09:27)
[2023-07-18] MEDS: HEPARIN SODIUM (PORCINE) 5000 UNITS/ML 1ML VIAL SC SCH ×2 (09:33→21:54)
[2023-07-18] MEDS ORDERED: METOPROLOL TARTRATE 25 MG TAB PO SCH (10:00)
[2023-07-18] MEDS: POTASSIUM EFFERVESENT TAB 25 MEQ GT SCH (10:00)
[2023-07-18] MEDS: METOPROLOL TARTRATE 1MG/1ML-5ML VIAL IV SCH ×2 (10:58→21:53)
[2023-07-18] MEDS: AMIODARONE 450mg/250ml AE 250 ML IV SCH ×2 (11:05→21:53)
[2023-07-18] MEDS: MIDAZOLAM DRIP 50 mg/50mL 50 ML IV SCH (11:45)
[2023-07-18] MEDS: NOREPINEPHRINE 8 MG/250ML KIT 250 ML IV SCH (12:45)
[2023-07-18] MEDS: NITROGLYCERIN 50MG/250ML 250 ML IV SCH (13:15)
[2023-07-18] MEDS ORDERED: AMIODARONE 450mg/250ml AE 250 ML IV SCH (15:45)
[2023-07-18] MEDS: fentaNYL Drip 2500mCg/250mlNS 250 ML IV SCH (18:45)
[2023-07-19] VITALS (37 sets, daily range): BP systolic 98–167; BP diastolic 30–103; PULSE 84–107; RESP 14–30; TEMP 92.5–99.9; O2SAT 90–99
[2023-07-19] MEDS: hydrALAZINE HCL 20 MG/ML VL IV PRN (01:14)
[2023-07-19] MEDS: FREE WATER GT SCH ×6 (01:33→21:03)
[2023-07-19 04:25] LABS: Hemoglobin 11.5 g/dL (12.2-16.2)
[2023-07-19 04:29] LABS: Hematocrit 36.8 % (36.0-46.0); Mean Corpuscular Hemoglobin 28.9 pg (28.0-32.0); Mean Corpuscular Hgb Conc. 31.2 g/dL (32.0-36.0); Mean Corpuscular Volume 92.6 fL (80.0-100.0); Red Blood Cells 3.97 10^6/uL (4.0-5.20); Red Cell Distribution Width 15.4 % (11.8-14.3)
[2023-07-19 04:55] LABS: White Blood Cell 32.4 10^3/uL (4.4-10.8)
[2023-07-19 04:57] LABS: Basophils % (manual) 0 (0.0-2.0); Blast Cells 0; Eosinophils % (manual) 0 (0-7); Metamyelocytes % 0; Myelocytes % 0; Promyelocytes % 0; Reactive Lymphocytes 0
[2023-07-19 05:17] LABS: Chloride 106 mmol/L (98-107); Potassium 3.4 mmol/L (3.5-5.1); Sodium 149 mmol/L (136-145)
[2023-07-19 05:19] LABS: Anion Gap 17 (5-15); Carbon Dioxide 26 mmol/L (20-30)
[2023-07-19 05:20] LABS: Calcium 9.2 mg/dL (8.5-10.1)
[2023-07-19 05:24] LABS: BUN/Creatinine Ratio 23.6 (10.0-20.0); Blood Urea Nitrogen 41 mg/dL (9-23); Glucose 347 mg/dL (74-106)
[2023-07-19] MEDS: IPRATROPIUM BROM 0.5 MG/2.5ML INH SOL NEB SCH ×5 (05:43→21:37)
[2023-07-19] MEDS: ALBUTEROL MEDNEB 2.5 mg/3ml NEB NEB SCH ×5 (05:43→21:37)
[2023-07-19] MEDS: ACCU-CHEK COMFORT CURVE STRIP VI SCH ×4 (05:45→23:38)
[2023-07-19] MEDS: InsuLIN REG 1unit/0.01ml Soln (100units/ml) SC SCH ×4 (05:50→23:38)
[2023-07-19 05:54] LABS: Anisocytosis Slight; Band Neutrophils % (manual) 6; Large Platelets FEW; Lymphocytes % (manual) 4 (10.0-50.0); Monocytes % (manual) 7 (0-12); Platelet Estimate Adequate
[2023-07-19 05:55] LABS: Ovalocytes FEW
[2023-07-19] MEDS: POTASSIUM EFFERVESENT TAB 25 MEQ GT SCH (09:27)
[2023-07-19] MEDS: cefTRIAXone 1GM/50ML D5W 50 ML IV SCH (09:27)
[2023-07-19] MEDS: METOPROLOL TARTRATE 1MG/1ML-5ML VIAL IV SCH ×2 (09:27→20:57)
[2023-07-19] MEDS: PANTOPRAZOLE 40 MG/10 ML VIAL INJ IV SCH (09:27)
[2023-07-19] MEDS: HEPARIN SODIUM (PORCINE) 5000 UNITS/ML 1ML VIAL SC SCH ×2 (09:28→20:58)
[2023-07-19] MEDS ORDERED: BUMETANIDE 2.5mg/10ml (0.25 mg/ml) INJ IV ONE (09:30)
[2023-07-19] MEDS: AMIODARONE 450mg/250ml AE 250 ML IV SCH (09:48)
[2023-07-19] MEDS ORDERED: TPN PER PHARMACY 0 ML IV SCH (11:15)
[2023-07-19 11:40] LABS: Albumin 3.8 g/dL (3.2-4.8)
[2023-07-19 11:41] LABS: Phosphorus 3.6 mg/dL (2.4-5.1)
[2023-07-19] MEDS ORDERED: POTASSIUM CHL 20MEQ/100ML 200 ML IV ONE (11:44)
[2023-07-19] MEDS: MIDAZOLAM DRIP 50 mg/50mL 50 ML IV SCH (11:45)
[2023-07-19] MEDS: POTASSIUM CHL 20MEQ/100ML 100 ML IV SCH ×2 (11:48→14:03)
[2023-07-19 12:19] LABS: Magnesium 1.8 mg/dL (1.6-2.6)
[2023-07-19] MEDS: NOREPINEPHRINE 8 MG/250ML KIT 250 ML IV SCH (12:45)
[2023-07-19] MEDS ORDERED: DEXTROSE (50%) 50ML SYRG IV SCH (13:15)
[2023-07-19] MEDS: NITROGLYCERIN 50MG/250ML 250 ML IV SCH (13:15)
[2023-07-19] MEDS ORDERED: POTASSIUM CHL 20MEQ/100ML 100 ML IV ONE (14:01)
[2023-07-19] MEDS: BUMETANIDE 2.5mg/10ml (0.25 mg/ml) INJ IV SCH (18:27)
[2023-07-19] MEDS: fentaNYL Drip 2500mCg/250mlNS 250 ML IV SCH (18:45)
[2023-07-19] MEDS ORDERED: TPN PER PHARMACY IV NR ×10 (20:00)
[2023-07-20] VITALS (49 sets, daily range): BP systolic 119–158; BP diastolic 41–96; PULSE 70–99; RESP 13–33; TEMP 97.9–98.8; O2SAT 90–99
[2023-07-20] MEDS: FREE WATER GT SCH ×2 (01:27→06:00)
[2023-07-20] MEDS: AMIODARONE 450mg/250ml AE 250 ML IV SCH ×2 (01:27→14:54)
[2023-07-20 05:04] LABS: Alanine Aminotransferase 11 U/L (7-40); Albumin 3.6 g/dL (3.2-4.8); Alkaline Phosphatase 101 U/L (46-116); Anion Gap 11 (5-15); Aspartate Aminotransferase 14 U/L (13-40); BUN/Creatinine Ratio 24.1 (10.0-20.0); Bilirubin, Total 0.7 mg/dL (0.2-1.0); Blood Urea Nitrogen 40 mg/dL (9-23); Calcium 9.3 mg/dL (8.7-10.4); Carbon Dioxide 31 mmol/L (20-30); Chloride 111 mmol/L (98-107); Magnesium 1.5 mg/dL (1.6-2.6); Phosphorus 2.6 mg/dL (2.4-5.1); Potassium 3.3 mmol/L (3.5-5.1); Sodium 153 mmol/L (136-145); Total Protein 6.4 g/dL (5.7-8.2)
[2023-07-20 05:34] LABS: Glucose 402 mg/dL (74-106)
[2023-07-20] MEDS: BUMETANIDE 2.5mg/10ml (0.25 mg/ml) INJ IV SCH ×2 (06:22→17:22)
[2023-07-20] MEDS: ACCU-CHEK COMFORT CURVE STRIP VI SCH ×3 (06:23→20:08)
[2023-07-20] MEDS: InsuLIN REG 1unit/0.01ml Soln (100units/ml) SC SCH ×3 (06:23→20:16)
[2023-07-20] MEDS: ALBUTEROL MEDNEB 2.5 mg/3ml NEB NEB SCH ×5 (06:29→22:51)
[2023-07-20] MEDS: IPRATROPIUM BROM 0.5 MG/2.5ML INH SOL NEB SCH ×5 (06:29→22:51)
[2023-07-20] MEDS ORDERED: MAGNESIUM SULFATE 1GM/100ML 100 ML IV ONE (07:00)
[2023-07-20] MEDS ORDERED: DEXTROSE (50%) 50ML SYRG IV PRN ×2 (09:45→13:45)
[2023-07-20 09:56] LABS: Basophils # (auto) 0.1 10 ^3/uL (0-0.2); Basophils % (auto) 0.7 % (0.0-2.0); Eosinophils # (auto) 0 10 ^3/uL (0-0.8); Eosinophils % (auto) 0.2 % (0.0-7.0); Hematocrit 34.1 % (36.0-46.0); Hemoglobin 10.7 g/dL (12.2-16.2); Lymphocytes # (auto) 0.8 10 ^3/uL (0.4-5.4); Lymphocytes % (auto) 4.7 % (10.0-50.0); Mean Corpuscular Hemoglobin 28.7 pg (28.0-32.0); Mean Corpuscular Hgb Conc. 31.3 g/dL (32.0-36.0); Mean Corpuscular Volume 91.7 fL (80.0-100.0); Monocytes # (auto) 0.8 10 ^3/uL (0-1.3); Monocytes % (auto) 5.2 % (0.0-12.0); Neutrophils # (auto) 14.2 10 ^3/uL (1.6-8.6); Neutrophils % (auto) 89.2 % (37.0-80.0); Red Blood Cells 3.71 10^6/uL (4.0-5.20); Red Cell Distribution Width 15.8 % (11.8-14.3); White Blood Cell 15.9 10^3/uL (4.4-10.8)
[2023-07-20] MEDS: POTASSIUM EFFERVESENT TAB 25 MEQ GT SCH (10:00)
[2023-07-20] MEDS ORDERED: MEROPENEM 500MG IVPB 50 ML IV SCH (10:00)
[2023-07-20] MEDS: POTASSIUM CHL 20MEQ/100ML 100 ML IV SCH ×4 (10:13→20:08)
[2023-07-20] MEDS: MAGNESIUM SULFATE 1GM/100ML 100 ML IV SCH ×2 (10:26→11:24)
[2023-07-20] MEDS: ACETYLCYSTEINE 10 %(100MG/ML) SOL 4ML NEB SCH ×3 (10:26→22:52)
[2023-07-20] MEDS: METOPROLOL TARTRATE 1MG/1ML-5ML VIAL IV SCH ×2 (10:33→21:56)
[2023-07-20] MEDS: D5W 5% 1,000 ML IV SCH (10:33)
[2023-07-20] MEDS: PANTOPRAZOLE 40 MG/10 ML VIAL INJ IV SCH (10:34)
[2023-07-20] MEDS: LINEZOLID 600MG/300ML 300 ML IV SCH ×2 (10:34→21:57)
[2023-07-20] MEDS: HEPARIN SODIUM (PORCINE) 5000 UNITS/ML 1ML VIAL SC SCH ×2 (10:34→22:01)
[2023-07-20] MEDS ORDERED: InsuLIN REG 1unit/0.01ml Soln (100units/ml) SC SCH (12:00)
[2023-07-20] MEDS ORDERED: ACCU-CHEK COMFORT CURVE STRIP VI SCH (12:00)
[2023-07-20] MEDS: NOREPINEPHRINE 8 MG/250ML KIT 250 ML IV SCH (12:45)
[2023-07-20] MEDS: NITROGLYCERIN 50MG/250ML 250 ML IV SCH (13:15)
[2023-07-20] MEDS ORDERED: InsuLIN REG 1unit/0.01ml Soln (100units/ml) IV ONE (13:45)
[2023-07-20 16:55] LABS: Potassium 3.3 mmol/L (3.5-5.1)
[2023-07-20] MEDS: MORPHINE SULFATE INJ 2 MG/ml SYRG IV PRN (17:21)
[2023-07-20] MEDS ORDERED: ACETYLCYSTEINE 10 %(100MG/ML) SOL 4ML NEB SCH (18:00)
[2023-07-20] MEDS: TPN PER PHARMACY IV NR ×11 (20:15)
[2023-07-20] MEDS: MEROPENEM 1GM IVPB 100 ML IV SCH (21:58)
[2023-07-20] MEDS ORDERED: INSULIN LANTUS (GLARGINE) 1 /0.01ml (100units/ml) SC SCH (22:00)
[2023-07-21] VITALS (40 sets, daily range): BP systolic 82–161; BP diastolic 29–104; PULSE 70–92; RESP 10–33; TEMP 34.3; O2SAT 90–100
[2023-07-21] MEDS: ACCU-CHEK COMFORT CURVE STRIP VI SCH ×6 (04:32→19:53)
[2023-07-21] MEDS: InsuLIN REG 1unit/0.01ml Soln (100units/ml) SC SCH ×6 (04:33→19:56)
[2023-07-21 05:03] LABS: Basophils # (auto) 0 10 ^3/uL (0-0.2); Basophils % (auto) 0.3 % (0.0-2.0); Eosinophils # (auto) 0.1 10 ^3/uL (0-0.8); Eosinophils % (auto) 0.4 % (0.0-7.0); Hematocrit 33.4 % (36.0-46.0); Hemoglobin 10.6 g/dL (12.2-16.2); Lymphocytes # (auto) 0.9 10 ^3/uL (0.4-5.4); Lymphocytes % (auto) 6.2 % (10.0-50.0); Mean Corpuscular Hemoglobin 28.8 pg (28.0-32.0); Mean Corpuscular Hgb Conc. 31.8 g/dL (32.0-36.0); Mean Corpuscular Volume 90.4 fL (80.0-100.0); Monocytes # (auto) 0.7 10 ^3/uL (0-1.3); Monocytes % (auto) 4.8 % (0.0-12.0); Neutrophils # (auto) 12.3 10 ^3/uL (1.6-8.6); Neutrophils % (auto) 88.3 % (37.0-80.0); Red Blood Cells 3.69 10^6/uL (4.0-5.20); Red Cell Distribution Width 15.7 % (11.8-14.3); White Blood Cell 13.9 10^3/uL (4.4-10.8)
[2023-07-21] MEDS: D5W 5% 1,000 ML IV SCH ×2 (05:04→19:53)
[2023-07-21 05:42] LABS: Alanine Aminotransferase 10 U/L (7-40); Alkaline Phosphatase 103 U/L (46-116); Anion Gap 8 (5-15); BUN/Creatinine Ratio 26.1 (10.0-20.0); Blood Urea Nitrogen 37 mg/dL (9-23); Calcium 9.4 mg/dL (8.7-10.4); Carbon Dioxide 31 mmol/L (20-30); Chloride 110 mmol/L (98-107); Glucose 354 mg/dL (74-106); Magnesium 1.8 mg/dL (1.6-2.6); Potassium 3.3 mmol/L (3.5-5.1); Sodium 149 mmol/L (136-145)
[2023-07-21 05:43] LABS: Albumin 3.6 g/dL (3.2-4.8); Aspartate Aminotransferase 11 U/L (13-40)
[2023-07-21 05:44] LABS: Bilirubin, Total 0.6 mg/dL (0.2-1.0); Phosphorus 1.6 mg/dL (2.4-5.1); Total Protein 6.3 g/dL (5.7-8.2)
[2023-07-21] MEDS: BUMETANIDE 2.5mg/10ml (0.25 mg/ml) INJ IV SCH ×2 (06:00→19:51)
[2023-07-21] MEDS: AMIODARONE 450mg/250ml AE 250 ML IV SCH (06:01)
[2023-07-21] MEDS: ALBUTEROL MEDNEB 2.5 mg/3ml NEB NEB SCH ×5 (06:36→22:31)
[2023-07-21] MEDS: ACETYLCYSTEINE 10 %(100MG/ML) SOL 4ML NEB SCH ×3 (06:37→22:31)
[2023-07-21] MEDS: IPRATROPIUM BROM 0.5 MG/2.5ML INH SOL NEB SCH ×5 (06:37→22:31)
[2023-07-21] MEDS ORDERED: MAGNESIUM SULFATE 1GM/100ML 100 ML IV ONE (06:45)
[2023-07-21] MEDS ORDERED: POTASSIUM CHLORIDE 60 MEQ, LIDOCAINE 1% (LOCAL ANESTH.) 6 ML in SODIUM CHL 0.9% 500 ML IV ONE (06:45)
[2023-07-21] MEDS ORDERED: POTASSIUM CHL 20MEQ/100ML 100 ML IV ONE (07:00)
[2023-07-21] MEDS: NEUTRA-PHOS TABLET PO SCH ×2 (09:50→18:00)
[2023-07-21] MEDS: POTASSIUM EFFERVESENT TAB 25 MEQ GT SCH (10:00)
[2023-07-21] MEDS: METOPROLOL TARTRATE 1MG/1ML-5ML VIAL IV SCH (10:51)
[2023-07-21] MEDS: MEROPENEM 1GM IVPB 100 ML IV SCH ×2 (10:52→22:00)
[2023-07-21] MEDS: HEPARIN SODIUM (PORCINE) 5000 UNITS/ML 1ML VIAL SC SCH ×2 (10:52→22:00)
[2023-07-21] MEDS: INSULIN LANTUS (GLARGINE) 1 /0.01ml (100units/ml) SC SCH ×2 (10:55→22:00)
[2023-07-21] MEDS ORDERED: SODIUM PHOSP 40 MEQ in D5W 5% 250 ML IV ONE (11:00)
[2023-07-21] MEDS: NOREPINEPHRINE 8 MG/250ML KIT 250 ML IV SCH (12:45)
[2023-07-21] MEDS ORDERED: AMIODARONE HCL 200 MG TAB PO ONE (12:45)
[2023-07-21] MEDS: LINEZOLID 600MG/300ML 300 ML IV SCH ×2 (12:47→22:00)
[2023-07-21] MEDS: PANTOPRAZOLE 40 MG/10 ML VIAL INJ IV SCH (12:47)
[2023-07-21] MEDS: NITROGLYCERIN 50MG/250ML 250 ML IV SCH (13:15)
[2023-07-21] MEDS: MICAFUNGIN SODIUM 100 MG in SODIUM CHL 0.9% 100 ML IV SCH (14:44)
[2023-07-21] MEDS ORDERED: SODIUM CHLORIDE 0.9% 500 ML IV ONE (16:00)
[2023-07-21] MEDS: TPN PER PHARMACY IV NR ×11 (19:46)
[2023-07-21] MEDS ORDERED: TPN PER PHARMACY IV NR ×10 (20:00)
[2023-07-21] MEDS: AMIODARONE HCL 200 MG TAB PO SCH (22:00)
[2023-07-21] MEDS ORDERED: METOPROLOL TARTRATE 50 MG TAB PO SCH (22:00)
[2023-07-22] VITALS (30 sets, daily range): BP systolic 92–169; BP diastolic 30–92; PULSE 73–88; RESP 14–29; TEMP 97.5–99.3; O2SAT 3–100
[2023-07-22] MEDS: D5W 5% 1,000 ML IV SCH (01:45)
[2023-07-22] MEDS: ACCU-CHEK COMFORT CURVE STRIP VI SCH ×5 (04:00→23:52)
[2023-07-22 04:26] LABS: Alanine Aminotransferase 10 U/L (7-40); Albumin 3.3 g/dL (3.2-4.8); Alkaline Phosphatase 84 U/L (46-116)
[2023-07-22 04:27] LABS: Anion Gap 7 (5-15); Aspartate Aminotransferase 12 U/L (13-40); BUN/Creatinine Ratio 26.8 (10.0-20.0); Bilirubin, Total 0.7 mg/dL (0.2-1.0); Blood Urea Nitrogen 33 mg/dL (9-23); Calcium 8.8 mg/dL (8.7-10.4); Carbon Dioxide 29 mmol/L (20-30); Chloride 106 mmol/L (98-107); Glucose 289 mg/dL (74-106); Magnesium 1.8 mg/dL (1.6-2.6); Phosphorus 3.4 mg/dL (2.4-5.1); Potassium 3.6 mmol/L (3.5-5.1); Sodium 142 mmol/L (136-145); Total Protein 5.9 g/dL (5.7-8.2)
[2023-07-22] MEDS: BUMETANIDE 2.5mg/10ml (0.25 mg/ml) INJ IV SCH ×2 (06:01→17:49)
[2023-07-22] MEDS: IPRATROPIUM BROM 0.5 MG/2.5ML INH SOL NEB SCH ×5 (06:18→22:26)
[2023-07-22] MEDS: ALBUTEROL MEDNEB 2.5 mg/3ml NEB NEB SCH ×5 (06:18→22:26)
[2023-07-22] MEDS: ACETYLCYSTEINE 10 %(100MG/ML) SOL 4ML NEB SCH ×3 (06:18→22:26)
[2023-07-22] MEDS: NEUTRA-PHOS TABLET PO SCH ×4 (08:00→18:00)
[2023-07-22] MEDS ORDERED: DEXTROSE (50%) 50ML SYRG IV PRN (08:15)
[2023-07-22] MEDS ORDERED: Glucerna 1.2 Cal 1Liter BOTTLE GT SCH (09:15)
[2023-07-22] MEDS: SOD CHL 0.45% 1,000 ML IV SCH (09:58)
[2023-07-22] MEDS: MEROPENEM 1GM IVPB 100 ML IV SCH ×2 (09:58→22:38)
[2023-07-22] MEDS: LINEZOLID 600MG/300ML 300 ML IV SCH ×2 (09:58→20:33)
[2023-07-22] MEDS: PANTOPRAZOLE 40 MG/10 ML VIAL INJ IV SCH (10:06)
[2023-07-22] MEDS: HEPARIN SODIUM (PORCINE) 5000 UNITS/ML 1ML VIAL SC SCH ×2 (10:17→22:37)
[2023-07-22] MEDS: INSULIN LANTUS (GLARGINE) 1 /0.01ml (100units/ml) SC SCH ×2 (10:27→23:49)
[2023-07-22] MEDS: AMIODARONE HCL 200 MG TAB PO SCH ×2 (10:34→22:00)
[2023-07-22] MEDS ORDERED: METOPROLOL TARTRATE 25 MG TAB PO ONE (11:00)
[2023-07-22] MEDS: NITROGLYCERIN 50MG/250ML 250 ML IV SCH (12:31)
[2023-07-22] MEDS: NOREPINEPHRINE 8 MG/250ML KIT 250 ML IV SCH (12:38)
[2023-07-22] MEDS: InsuLIN REG 1unit/0.01ml Soln (100units/ml) SC SCH ×4 (12:42→23:52)
[2023-07-22] MEDS: MICAFUNGIN SODIUM 100 MG in SODIUM CHL 0.9% 100 ML IV SCH (12:44)
[2023-07-22] MEDS ORDERED: TPN PER PHARMACY IV NR ×11 (20:00)
[2023-07-22] MEDS: METOPROLOL TARTRATE 25 MG TAB PO SCH (22:00)
[2023-07-22] MEDS ORDERED: METOPROLOL TARTRATE 25 MG TAB PO SCH (22:00)
[2023-07-23] VITALS (39 sets, daily range): BP systolic 100–143; BP diastolic 35–56; PULSE 73–85; RESP 13–32; TEMP 96.3–99.1; O2SAT 93–99
[2023-07-23 03:58] LABS: Basophils # (auto) 0 10 ^3/uL (0-0.2); Basophils % (auto) 0.3 % (0.0-2.0); Eosinophils # (auto) 0.1 10 ^3/uL (0-0.8); Eosinophils % (auto) 0.8 % (0.0-7.0); Hemoglobin 10.3 g/dL (12.2-16.2); Lymphocytes % (auto) 11.5 % (10.0-50.0); Mean Corpuscular Hgb Conc. 32.2 g/dL (32.0-36.0); Mean Corpuscular Volume 89.8 fL (80.0-100.0); Monocytes # (auto) 0.7 10 ^3/uL (0-1.3); Monocytes % (auto) 7.9 % (0.0-12.0); Neutrophils # (auto) 6.7 10 ^3/uL (1.6-8.6); Neutrophils % (auto) 79.5 % (37.0-80.0); Nucleated Red Blood Cells % 0.2 %; Red Blood Cells 3.56 10^6/uL (4.0-5.20); Red Cell Distribution Width 15.7 % (11.8-14.3); White Blood Cell 8.5 10^3/uL (4.4-10.8)
[2023-07-23] MEDS: SOD CHL 0.45% 1,000 ML IV SCH ×2 (04:15→10:00)
[2023-07-23 04:31] LABS: Albumin 3.1 g/dL (3.2-4.8); Alkaline Phosphatase 74 U/L (46-116); Anion Gap 9 (5-15); Aspartate Aminotransferase 17 U/L (13-40); BUN/Creatinine Ratio 32.5 (10.0-20.0); Bilirubin, Total 0.8 mg/dL (0.2-1.0); Blood Urea Nitrogen 38 mg/dL (9-23); Calcium 8.5 mg/dL (8.5-10.1); Carbon Dioxide 27 mmol/L (20-30); Chloride 103 mmol/L (98-107); Glucose 225 mg/dL (74-106); Phosphorus 4.2 mg/dL (2.4-5.1); Potassium 3.7 mmol/L (3.5-5.1); Sodium 139 mmol/L (136-145); Total Protein 5.6 g/dL (5.7-8.2)
[2023-07-23 04:56] LABS: Alanine Aminotransferase 11 U/L (7-40)
[2023-07-23 05:07] LABS: Magnesium 1.9 mg/dL (1.6-2.6)
[2023-07-23] MEDS: BUMETANIDE 2.5mg/10ml (0.25 mg/ml) INJ IV SCH ×2 (05:50→17:55)
[2023-07-23] MEDS: InsuLIN REG 1unit/0.01ml Soln (100units/ml) SC SCH ×3 (06:00→16:58)
[2023-07-23] MEDS: ACCU-CHEK COMFORT CURVE STRIP VI SCH ×3 (06:01→16:06)
[2023-07-23] MEDS: IPRATROPIUM BROM 0.5 MG/2.5ML INH SOL NEB SCH ×4 (06:50→22:34)
[2023-07-23] MEDS: ALBUTEROL MEDNEB 2.5 mg/3ml NEB NEB SCH ×4 (06:50→22:34)
[2023-07-23] MEDS: ACETYLCYSTEINE 10 %(100MG/ML) SOL 4ML NEB SCH ×2 (06:50→22:00)
[2023-07-23] MEDS: NEUTRA-PHOS TABLET PO SCH ×3 (08:00→16:06)
[2023-07-23] MEDS: MEROPENEM 1GM IVPB 100 ML IV SCH ×2 (08:01→22:11)
[2023-07-23] MEDS: LINEZOLID 600MG/300ML 300 ML IV SCH ×2 (08:01→22:11)
[2023-07-23] MEDS: MICAFUNGIN SODIUM 100 MG in SODIUM CHL 0.9% 100 ML IV SCH (08:01)
[2023-07-23] MEDS: PANTOPRAZOLE 40 MG/10 ML VIAL INJ IV SCH (08:01)
[2023-07-23] MEDS: HEPARIN SODIUM (PORCINE) 5000 UNITS/ML 1ML VIAL SC SCH ×2 (08:01→22:23)
[2023-07-23] MEDS: INSULIN LANTUS (GLARGINE) 1 /0.01ml (100units/ml) SC SCH ×2 (08:02→22:23)
[2023-07-23] MEDS: METOPROLOL TARTRATE 25 MG TAB PO SCH ×2 (08:31→21:31)
[2023-07-23] MEDS: AMIODARONE HCL 200 MG TAB PO SCH ×2 (08:31→21:31)
[2023-07-23] MEDS: NITROGLYCERIN 50MG/250ML 250 ML IV SCH (11:06)
[2023-07-23] MEDS ORDERED: ALBUTEROL MEDNEB 2.5 mg/3ml NEB ONE (15:32)
[2023-07-23] MEDS: ACETAMINOPHEN 650 MG RECT SUPP PR PRN (16:06)
[2023-07-23] MEDS ORDERED: TPN PER PHARMACY IV NR ×11 (20:00)
[2023-07-24] VITALS (38 sets, daily range): BP systolic 89–151; BP diastolic 29–63; PULSE 68–86; RESP 16–95; TEMP 97.9–99.2; O2SAT 24–98
[2023-07-24] MEDS: ACCU-CHEK COMFORT CURVE STRIP VI SCH ×5 (00:45→23:29)
[2023-07-24] MEDS: InsuLIN REG 1unit/0.01ml Soln (100units/ml) SC SCH ×5 (00:46→23:30)
[2023-07-24 04:11] LABS: Basophils # (auto) 0 10 ^3/uL (0-0.2); Basophils % (auto) 0.3 % (0.0-2.0); Eosinophils # (auto) 0.1 10 ^3/uL (0-0.8); Eosinophils % (auto) 0.8 % (0.0-7.0); Hematocrit 30.7 % (36.0-46.0); Lymphocytes # (auto) 1.1 10 ^3/uL (0.4-5.4); Lymphocytes % (auto) 16.6 % (10.0-50.0); Mean Corpuscular Hemoglobin 28.8 pg (28.0-32.0); Mean Corpuscular Hgb Conc. 32.5 g/dL (32.0-36.0); Mean Corpuscular Volume 88.5 fL (80.0-100.0); Monocytes # (auto) 0.7 10 ^3/uL (0-1.3); Monocytes % (auto) 10.5 % (0.0-12.0); Neutrophils # (auto) 4.6 10 ^3/uL (1.6-8.6); Neutrophils % (auto) 71.8 % (37.0-80.0); Nucleated Red Blood Cells % 0.1 %; Red Blood Cells 3.47 10^6/uL (4.0-5.20); Red Cell Distribution Width 15.7 % (11.8-14.3); White Blood Cell 6.4 10^3/uL (4.4-10.8)
[2023-07-24 04:30] LABS: Alanine Aminotransferase 15 U/L (7-40); Alkaline Phosphatase 79 U/L (46-116); Anion Gap 8 (5-15); Aspartate Aminotransferase 23 U/L (13-40); Bilirubin, Total 0.9 mg/dL (0.2-1.0); Blood Urea Nitrogen 37 mg/dL (9-23); Calcium 8.4 mg/dL (8.7-10.4); Carbon Dioxide 26 mmol/L (20-30); Chloride 103 mmol/L (98-107); Glucose 262 mg/dL (74-106); Magnesium 2.1 mg/dL (1.6-2.6); Phosphorus 2.9 mg/dL (2.4-5.1); Potassium 3.6 mmol/L (3.5-5.1); Sodium 137 mmol/L (136-145)
[2023-07-24 04:31] LABS: Total Protein 5.5 g/dL (5.7-8.2)
[2023-07-24 04:58] LABS: BUN/Creatinine Ratio 30.1 (10.0-20.0)
[2023-07-24] MEDS: BUMETANIDE 2.5mg/10ml (0.25 mg/ml) INJ IV SCH ×2 (05:52→18:04)
[2023-07-24] MEDS: MORPHINE SULFATE INJ 2 MG/ml SYRG IV PRN (06:21)
[2023-07-24] MEDS: NITROGLYCERIN 50MG/250ML 250 ML IV SCH (07:07)
[2023-07-24] MEDS: ACETYLCYSTEINE 10 %(100MG/ML) SOL 4ML NEB SCH ×3 (07:13→18:15)
[2023-07-24] MEDS: IPRATROPIUM BROM 0.5 MG/2.5ML INH SOL NEB SCH ×5 (07:14→22:00)
[2023-07-24] MEDS: ALBUTEROL MEDNEB 2.5 mg/3ml NEB NEB SCH ×5 (07:22→22:00)
[2023-07-24] MEDS: MEROPENEM 1GM IVPB 100 ML IV SCH ×2 (07:54→23:33)
[2023-07-24] MEDS: MICAFUNGIN SODIUM 100 MG in SODIUM CHL 0.9% 100 ML IV SCH (07:54)
[2023-07-24] MEDS: LINEZOLID 600MG/300ML 300 ML IV SCH ×2 (07:54→21:30)
[2023-07-24] MEDS: INSULIN LANTUS (GLARGINE) 1 /0.01ml (100units/ml) SC SCH ×2 (07:55→23:30)
[2023-07-24] MEDS: PANTOPRAZOLE 40 MG/10 ML VIAL INJ IV SCH (07:55)
[2023-07-24] MEDS: HEPARIN SODIUM (PORCINE) 5000 UNITS/ML 1ML VIAL SC SCH ×2 (07:55→21:37)
[2023-07-24] MEDS: NEUTRA-PHOS TABLET PO SCH (08:00)
[2023-07-24] MEDS: METOPROLOL TARTRATE 25 MG TAB PO SCH ×2 (10:00→21:25)
[2023-07-24] MEDS: AMIODARONE HCL 200 MG TAB PO SCH ×2 (10:00→21:24)
[2023-07-24] MEDS ORDERED: TPN PER PHARMACY IV NR ×12 (20:00)
[2023-07-24] MEDS: SOD CHL 0.45% 1,000 ML IV SCH (20:15)
[2023-07-25] VITALS (36 sets, daily range): BP systolic 99–145; BP diastolic 31–69; PULSE 66–83; RESP 14–26; TEMP 97.5–99; O2SAT 91–98
[2023-07-25 03:56] LABS: Basophils # (auto) 0 10 ^3/uL (0-0.2); Basophils % (auto) 0.7 % (0.0-2.0); Eosinophils # (auto) 0 10 ^3/uL (0-0.8); Eosinophils % (auto) 0.7 % (0.0-7.0); Hematocrit 31.1 % (36.0-46.0); Hemoglobin 10.3 g/dL (12.2-16.2); Lymphocytes # (auto) 1.1 10 ^3/uL (0.4-5.4); Lymphocytes % (auto) 16.3 % (10.0-50.0); Mean Corpuscular Hemoglobin 29.4 pg (28.0-32.0); Mean Corpuscular Hgb Conc. 33.1 g/dL (32.0-36.0); Mean Corpuscular Volume 88.7 fL (80.0-100.0); Monocytes # (auto) 0.9 10 ^3/uL (0-1.3); Monocytes % (auto) 12.9 % (0.0-12.0); Neutrophils # (auto) 4.6 10 ^3/uL (1.6-8.6); Neutrophils % (auto) 69.4 % (37.0-80.0); Nucleated Red Blood Cells % 0.1 %; Red Blood Cells 3.51 10^6/uL (4.0-5.20); Red Cell Distribution Width 15.3 % (11.8-14.3); White Blood Cell 6.6 10^3/uL (4.4-10.8)
[2023-07-25 04:12] LABS: Alanine Aminotransferase 20 U/L (7-40); Albumin 3.1 g/dL (3.2-4.8); Alkaline Phosphatase 83 U/L (46-116); Anion Gap 9 (5-15); Aspartate Aminotransferase 32 U/L (13-40); BUN/Creatinine Ratio 31.9 (10.0-20.0); Bilirubin, Total 0.8 mg/dL (0.2-1.0); Blood Urea Nitrogen 36 mg/dL (9-23); Calcium 8.6 mg/dL (8.7-10.4); Carbon Dioxide 24 mmol/L (20-30); Chloride 102 mmol/L (98-107); Glucose 209 mg/dL (74-106); Phosphorus 2.9 mg/dL (2.4-5.1); Potassium 3.9 mmol/L (3.5-5.1); Sodium 135 mmol/L (136-145); Total Protein 5.7 g/dL (5.7-8.2)
[2023-07-25] MEDS: ACCU-CHEK COMFORT CURVE STRIP VI SCH ×3 (05:59→17:54)
[2023-07-25] MEDS: BUMETANIDE 2.5mg/10ml (0.25 mg/ml) INJ IV SCH (06:01)
[2023-07-25] MEDS: ALBUTEROL MEDNEB 2.5 mg/3ml NEB NEB SCH ×5 (06:06→22:11)
[2023-07-25] MEDS: IPRATROPIUM BROM 0.5 MG/2.5ML INH SOL NEB SCH ×5 (06:06→22:11)
[2023-07-25] MEDS: ACETYLCYSTEINE 10 %(100MG/ML) SOL 4ML NEB SCH (06:06)
[2023-07-25] MEDS: InsuLIN REG 1unit/0.01ml Soln (100units/ml) SC SCH ×3 (06:09→18:00)
[2023-07-25] MEDS: MEROPENEM 1GM IVPB 100 ML IV SCH ×2 (10:45→22:50)
[2023-07-25] MEDS: METOPROLOL TARTRATE 25 MG TAB PO SCH ×2 (10:46→22:06)
[2023-07-25] MEDS: PANTOPRAZOLE 40 MG/10 ML VIAL INJ IV SCH (10:46)
[2023-07-25] MEDS: AMIODARONE HCL 200 MG TAB PO SCH ×2 (10:46→22:07)
[2023-07-25] MEDS: HEPARIN SODIUM (PORCINE) 5000 UNITS/ML 1ML VIAL SC SCH ×2 (10:47→22:02)
[2023-07-25] MEDS: SODIUM CHLORIDE 0.9% 1,000 ML IV SCH (11:15)
[2023-07-25] MEDS: MICAFUNGIN SODIUM 100 MG in SODIUM CHL 0.9% 100 ML IV SCH (11:15)
[2023-07-25] MEDS ORDERED: INSULIN LANTUS (GLARGINE) 1 /0.01ml (100units/ml) SC SCH (22:00)
[2023-07-26] VITALS (33 sets, daily range): BP systolic 104–175; BP diastolic 35–75; PULSE 73–97; RESP 12–25; TEMP 97.4–98.8; O2SAT 90–100
[2023-07-26] MEDS: ACCU-CHEK COMFORT CURVE STRIP VI SCH ×4 (00:16→17:31)
[2023-07-26] MEDS: InsuLIN REG 1unit/0.01ml Soln (100units/ml) SC SCH ×4 (00:19→17:35)
[2023-07-26] MEDS: hydrALAZINE HCL 20 MG/ML VL IV PRN (02:57)
[2023-07-26 04:28] LABS: Basophils # (auto) 0 10 ^3/uL (0-0.2); Basophils % (auto) 0.6 % (0.0-2.0); Eosinophils # (auto) 0 10 ^3/uL (0-0.8); Eosinophils % (auto) 0.4 % (0.0-7.0); Hematocrit 34.3 % (36.0-46.0); Hemoglobin 11.4 g/dL (12.2-16.2); Lymphocytes # (auto) 1.2 10 ^3/uL (0.4-5.4); Lymphocytes % (auto) 15.6 % (10.0-50.0); Mean Corpuscular Hemoglobin 29.3 pg (28.0-32.0); Mean Corpuscular Hgb Conc. 33.3 g/dL (32.0-36.0); Mean Corpuscular Volume 88.1 fL (80.0-100.0); Monocytes % (auto) 13.5 % (0.0-12.0); Neutrophils # (auto) 5.2 10 ^3/uL (1.6-8.6); Neutrophils % (auto) 69.9 % (37.0-80.0); Nucleated Red Blood Cells % 0.1 %; Red Cell Distribution Width 15.4 % (11.8-14.3); White Blood Cell 7.4 10^3/uL (4.4-10.8)
[2023-07-26 04:36] LABS: Anion Gap 9 (5-15); Carbon Dioxide 22 mmol/L (20-30); Chloride 105 mmol/L (98-107); Potassium 3.9 mmol/L (3.5-5.1); Sodium 136 mmol/L (136-145)
[2023-07-26 04:37] LABS: Calcium 9.1 mg/dL (8.7-10.4)
[2023-07-26 04:42] LABS: BUN/Creatinine Ratio 26.3 (10.0-20.0); Blood Urea Nitrogen 30 mg/dL (9-23); Glucose 221 mg/dL (74-106)
[2023-07-26] MEDS: SODIUM CHLORIDE 0.9% 1,000 ML IV SCH (06:46)
[2023-07-26] MEDS: IPRATROPIUM BROM 0.5 MG/2.5ML INH SOL NEB SCH ×5 (07:23→22:33)
[2023-07-26] MEDS: ALBUTEROL MEDNEB 2.5 mg/3ml NEB NEB SCH ×5 (07:23→22:35)
[2023-07-26] MEDS: PANTOPRAZOLE 40 MG/10 ML VIAL INJ IV SCH (10:37)
[2023-07-26] MEDS: AMIODARONE HCL 200 MG TAB PO SCH ×2 (10:37→21:58)
[2023-07-26] MEDS: FUROSEMIDE 40 MG TAB PO SCH (10:37)
[2023-07-26] MEDS: METOPROLOL TARTRATE 25 MG TAB PO SCH ×2 (10:39→21:58)
[2023-07-26] MEDS: HEPARIN SODIUM (PORCINE) 5000 UNITS/ML 1ML VIAL SC SCH ×2 (10:44→22:01)
[2023-07-26] MEDS: MEROPENEM 1GM IVPB 100 ML IV SCH ×2 (11:29→21:58)
[2023-07-26] MEDS: INSULIN LANTUS (GLARGINE) 1 /0.01ml (100units/ml) SC SCH (22:01)
[2023-07-26] MEDS: ACETAMINOPHEN 650 MG RECT SUPP PR PRN (22:02)
[2023-07-27] VITALS (50 sets, daily range): BP systolic 112–154; BP diastolic 49–92; PULSE 69–94; RESP 13–23; TEMP 97.6–98.1; O2SAT 91–100
[2023-07-27] MEDS: SODIUM CHLORIDE 0.9% 1,000 ML IV SCH (02:00)
[2023-07-27 05:05] LABS: Hematocrit 31.6 % (36.0-46.0); Hemoglobin 10.3 g/dL (12.2-16.2); Mean Corpuscular Hemoglobin 29.5 pg (28.0-32.0); Mean Corpuscular Hgb Conc. 32.7 g/dL (32.0-36.0); Mean Corpuscular Volume 90.4 fL (80.0-100.0); Red Blood Cells 3.49 10^6/uL (4.0-5.20); Red Cell Distribution Width 16.3 % (11.8-14.3); White Blood Cell 6.8 10^3/uL (4.4-10.8)
[2023-07-27 05:13] LABS: Chloride 106 mmol/L (98-107); Potassium 3.8 mmol/L (3.5-5.1); Sodium 139 mmol/L (136-145)
[2023-07-27 05:14] LABS: Anion Gap 9 (5-15); Carbon Dioxide 24 mmol/L (20-30)
[2023-07-27 05:19] LABS: BUN/Creatinine Ratio 23.1 (10.0-20.0); Band Neutrophils % (manual) 0; Basophils % (manual) 0 (0.0-2.0); Blast Cells 0; Blood Urea Nitrogen 25 mg/dL (9-23); Glucose 157 mg/dL (74-106); Metamyelocytes % 0; Myelocytes % 0; Promyelocytes % 0; Reactive Lymphocytes 0
[2023-07-27] MEDS: InsuLIN REG 1unit/0.01ml Soln (100units/ml) SC SCH ×5 (06:00→22:20)
[2023-07-27] MEDS: ACCU-CHEK COMFORT CURVE STRIP VI SCH ×5 (06:00→22:21)
[2023-07-27] MEDS: IPRATROPIUM BROM 0.5 MG/2.5ML INH SOL NEB SCH ×5 (07:04→22:10)
[2023-07-27] MEDS: ALBUTEROL MEDNEB 2.5 mg/3ml NEB NEB SCH ×5 (07:04→22:10)
[2023-07-27 07:57] LABS: Eosinophils % (manual) 2 (0-7); Lymphocytes % (manual) 15 (10.0-50.0); Monocytes % (manual) 20 (0-12); Platelet Estimate Adequate
[2023-07-27] MEDS: HEPARIN SODIUM (PORCINE) 5000 UNITS/ML 1ML VIAL SC SCH ×2 (08:53→22:19)
[2023-07-27] MEDS: AMIODARONE HCL 200 MG TAB PO SCH (08:54)
[2023-07-27] MEDS: METOPROLOL TARTRATE 25 MG TAB PO SCH ×2 (08:55→22:22)
[2023-07-27] MEDS: FUROSEMIDE 40 MG TAB PO SCH (08:55)
[2023-07-27] MEDS: MEROPENEM 1GM IVPB 100 ML IV SCH ×2 (08:55→22:14)
[2023-07-27] MEDS: PANTOPRAZOLE 40 MG/10 ML VIAL INJ IV SCH (08:55)
[2023-07-27] MEDS ORDERED: DEXTROSE (50%) 50ML SYRG IV PRN (10:30)
[2023-07-27] MEDS: LACTULOSE 20Gm/30ML SOLN PO PRN (17:47)
[2023-07-27] MEDS: INSULIN LANTUS (GLARGINE) 1 /0.01ml (100units/ml) SC SCH (22:21)
[2023-07-28] VITALS (33 sets, daily range): BP systolic 122–180; BP diastolic 48–78; PULSE 69–94; RESP 14–22; TEMP 97.2–97.8; O2SAT 89–100
[2023-07-28] MEDS: ACETAMINOPHEN 650 MG RECT SUPP PR PRN (04:43)
[2023-07-28] MEDS: LEVOTHYROXINE SODIUM 88 MCG TAB PO SCH (06:29)
[2023-07-28] MEDS: ACCU-CHEK COMFORT CURVE STRIP VI SCH ×4 (06:29→22:34)
[2023-07-28] MEDS: InsuLIN REG 1unit/0.01ml Soln (100units/ml) SC SCH ×4 (06:40→22:35)
[2023-07-28] MEDS: IPRATROPIUM BROM 0.5 MG/2.5ML INH SOL NEB SCH ×5 (07:28→22:43)
[2023-07-28] MEDS: ALBUTEROL MEDNEB 2.5 mg/3ml NEB NEB SCH ×5 (07:28→22:43)
[2023-07-28] MEDS ORDERED: AMIODARONE HCL 200 MG TAB PO SCH ×2 (10:00)
[2023-07-28] MEDS: NIFEdipine ER 30 MG TAB PO SCH (10:03)
[2023-07-28] MEDS: METOPROLOL TARTRATE 25 MG TAB PO SCH ×2 (10:04→21:30)
[2023-07-28] MEDS: FUROSEMIDE 40 MG TAB PO SCH (10:04)
[2023-07-28] MEDS: PANTOPRAZOLE 40 MG/10 ML VIAL INJ IV SCH (10:05)
[2023-07-28] MEDS: MEROPENEM 1GM IVPB 100 ML IV SCH ×2 (10:05→22:16)
[2023-07-28] MEDS: HEPARIN SODIUM (PORCINE) 5000 UNITS/ML 1ML VIAL SC SCH ×2 (10:06→21:29)
[2023-07-28] MEDS: INSULIN LANTUS (GLARGINE) 1 /0.01ml (100units/ml) SC SCH (22:37)
[2023-07-29] VITALS (17 sets, daily range): BP systolic 116–158; BP diastolic 44–70; PULSE 69–89; RESP 16–20; TEMP 97.5–98.2; O2SAT 92–100
[2023-07-29 05:07] LABS: Basophils # (auto) 0 10 ^3/uL (0-0.2); Basophils % (auto) 0.5 % (0.0-2.0); Eosinophils # (auto) 0 10 ^3/uL (0-0.8); Eosinophils % (auto) 0.4 % (0.0-7.0); Hematocrit 32.8 % (36.0-46.0); Hemoglobin 10.9 g/dL (12.2-16.2); Lymphocytes # (auto) 1.2 10 ^3/uL (0.4-5.4); Mean Corpuscular Hemoglobin 29.6 pg (28.0-32.0); Mean Corpuscular Hgb Conc. 33.2 g/dL (32.0-36.0); Monocytes # (auto) 1.1 10 ^3/uL (0-1.3); Monocytes % (auto) 14.3 % (0.0-12.0); Neutrophils # (auto) 5.2 10 ^3/uL (1.6-8.6); Neutrophils % (auto) 68.8 % (37.0-80.0); Nucleated Red Blood Cells % 0.1 %; Red Blood Cells 3.68 10^6/uL (4.0-5.20); Red Cell Distribution Width 16.1 % (11.8-14.3); White Blood Cell 7.6 10^3/uL (4.4-10.8)
[2023-07-29 05:38] LABS: Anion Gap 10 (5-15); Carbon Dioxide 23 mmol/L (20-30); Chloride 104 mmol/L (98-107); Potassium 3.6 mmol/L (3.5-5.1); Sodium 137 mmol/L (136-145)
[2023-07-29 05:39] LABS: Calcium 9.3 mg/dL (8.7-10.4)
[2023-07-29 05:44] LABS: BUN/Creatinine Ratio 15.7 (10.0-20.0); Blood Urea Nitrogen 14 mg/dL (9-23); Glucose 156 mg/dL (74-106)
[2023-07-29] MEDS: ACCU-CHEK COMFORT CURVE STRIP VI SCH ×4 (06:22→21:46)
[2023-07-29] MEDS: LEVOTHYROXINE SODIUM 88 MCG TAB PO SCH (06:22)
[2023-07-29] MEDS: IPRATROPIUM BROM 0.5 MG/2.5ML INH SOL NEB SCH ×5 (06:29→22:36)
[2023-07-29] MEDS: ALBUTEROL MEDNEB 2.5 mg/3ml NEB NEB SCH ×5 (06:29→22:36)
[2023-07-29] MEDS: InsuLIN REG 1unit/0.01ml Soln (100units/ml) SC SCH ×4 (06:32→22:09)
[2023-07-29] MEDS: ACETAMINOPHEN 650 MG RECT SUPP PR PRN ×2 (06:57→20:17)
[2023-07-29] MEDS ORDERED: levoFLOXacin 500MG 100 ML IV SCH (10:00)
[2023-07-29] MEDS: FUROSEMIDE 40 MG TAB PO SCH (10:28)
[2023-07-29] MEDS: METOPROLOL TARTRATE 25 MG TAB PO SCH ×2 (10:28→21:45)
[2023-07-29] MEDS: NIFEdipine ER 30 MG TAB PO SCH (10:28)
[2023-07-29] MEDS: PANTOPRAZOLE 40 MG/10 ML VIAL INJ IV SCH (10:29)
[2023-07-29] MEDS: HEPARIN SODIUM (PORCINE) 5000 UNITS/ML 1ML VIAL SC SCH ×2 (10:36→21:57)
[2023-07-29] MEDS ORDERED: MEROPENEM 1GM IVPB 100 ML IV SCH (12:45)
[2023-07-29] MEDS: MEROPENEM 1GM IVPB 100 ML IV SCH (21:44)
[2023-07-29] MEDS: INSULIN LANTUS (GLARGINE) 1 /0.01ml (100units/ml) SC SCH (22:10)
[2023-07-30] VITALS (19 sets, daily range): BP systolic 95–104; BP diastolic 34–49; PULSE 74–93; RESP 16–18; TEMP 97.2–98.2; O2SAT 92–100
[2023-07-30] MEDS: ACETAMINOPHEN 650 MG RECT SUPP PR PRN (04:08)
[2023-07-30] MEDS: MEROPENEM 1GM IVPB 100 ML IV SCH ×3 (05:03→22:37)
[2023-07-30] MEDS: IPRATROPIUM BROM 0.5 MG/2.5ML INH SOL NEB SCH ×5 (06:08→22:19)
[2023-07-30] MEDS: ALBUTEROL MEDNEB 2.5 mg/3ml NEB NEB SCH ×5 (06:08→22:19)
[2023-07-30] MEDS: ACCU-CHEK COMFORT CURVE STRIP VI SCH ×4 (06:30→23:06)
[2023-07-30] MEDS: InsuLIN REG 1unit/0.01ml Soln (100units/ml) SC SCH ×4 (06:39→23:24)
[2023-07-30] MEDS: LEVOTHYROXINE SODIUM 88 MCG TAB PO SCH (06:40)
[2023-07-30] MEDS ORDERED: HEPARIN SODIUM (PORCINE) 5000 UNITS/ML 1ML VIAL ONE (11:44)
[2023-07-30] MEDS: FUROSEMIDE 40 MG TAB PO SCH (11:56)
[2023-07-30] MEDS: METOPROLOL TARTRATE 25 MG TAB PO SCH ×2 (11:57→22:00)
[2023-07-30] MEDS: PANTOPRAZOLE 40 MG/10 ML VIAL INJ IV SCH (11:57)
[2023-07-30] MEDS: NIFEdipine ER 30 MG TAB PO SCH (11:57)
[2023-07-30] MEDS: HEPARIN SODIUM (PORCINE) 5000 UNITS/ML 1ML VIAL SC SCH ×2 (12:08→22:41)
[2023-07-30] MEDS: INSULIN LANTUS (GLARGINE) 1 /0.01ml (100units/ml) SC SCH (22:00)
[2023-07-31] VITALS (17 sets, daily range): BP systolic 101–150; BP diastolic 39–62; PULSE 70–96; RESP 16–18; TEMP 97.4–98.3; O2SAT 93–100
[2023-07-31] MEDS: ACETAMINOPHEN 650 mg PER 20.3 mL UD PO PRN ×2 (05:41→20:04)
[2023-07-31] MEDS: MEROPENEM 1GM IVPB 100 ML IV SCH ×3 (05:44→23:27)
[2023-07-31] MEDS: LEVOTHYROXINE SODIUM 88 MCG TAB PO SCH (05:45)
[2023-07-31] MEDS: ACCU-CHEK COMFORT CURVE STRIP VI SCH ×4 (05:50→23:27)
[2023-07-31] MEDS: InsuLIN REG 1unit/0.01ml Soln (100units/ml) SC SCH ×4 (05:52→22:00)
[2023-07-31] MEDS: IPRATROPIUM BROM 0.5 MG/2.5ML INH SOL NEB SCH ×5 (06:04→22:38)
[2023-07-31] MEDS: ALBUTEROL MEDNEB 2.5 mg/3ml NEB NEB SCH ×5 (06:04→22:38)
[2023-07-31] MEDS ORDERED: HEPARIN SODIUM (PORCINE) 5000 UNITS/ML 1ML VIAL ONE (10:16)
[2023-07-31] MEDS: PANTOPRAZOLE 40 MG/10 ML VIAL INJ IV SCH (10:28)
[2023-07-31] MEDS: FUROSEMIDE 40 MG TAB PO SCH (10:28)
[2023-07-31] MEDS: NIFEdipine ER 30 MG TAB PO SCH (10:29)
[2023-07-31] MEDS: METOPROLOL TARTRATE 25 MG TAB PO SCH ×2 (10:29→22:55)
[2023-07-31] MEDS: HEPARIN SODIUM (PORCINE) 5000 UNITS/ML 1ML VIAL SC SCH ×2 (10:38→22:53)
[2023-07-31] MEDS: INSULIN LANTUS (GLARGINE) 1 /0.01ml (100units/ml) SC SCH (22:00)
[2023-08-01] VITALS (13 sets, daily range): BP systolic 99–137; BP diastolic 29–82; PULSE 72–91; RESP 14–20; TEMP 97.5–98.2; O2SAT 91–97
[2023-08-01] MEDS: InsuLIN REG 1unit/0.01ml Soln (100units/ml) SC SCH ×4 (05:37→22:12)
[2023-08-01] MEDS: MEROPENEM 1GM IVPB 100 ML IV SCH ×3 (05:37→22:09)
[2023-08-01] MEDS: ACCU-CHEK COMFORT CURVE STRIP VI SCH ×4 (05:38→21:55)
[2023-08-01] MEDS: IPRATROPIUM BROM 0.5 MG/2.5ML INH SOL NEB SCH ×5 (06:48→22:29)
[2023-08-01] MEDS: ALBUTEROL MEDNEB 2.5 mg/3ml NEB NEB SCH ×5 (06:48→22:29)
[2023-08-01] MEDS: LEVOTHYROXINE SODIUM 88 MCG TAB PO SCH (07:06)
[2023-08-01] MEDS: FUROSEMIDE 40 MG TAB PO SCH (10:27)
[2023-08-01] MEDS: PANTOPRAZOLE 40 MG/10 ML VIAL INJ IV SCH (10:27)
[2023-08-01] MEDS: NIFEdipine ER 30 MG TAB PO SCH (10:27)
[2023-08-01] MEDS: METOPROLOL TARTRATE 25 MG TAB PO SCH ×2 (10:28→21:50)
[2023-08-01] MEDS: HEPARIN SODIUM (PORCINE) 5000 UNITS/ML 1ML VIAL SC SCH ×2 (10:36→21:55)
[2023-08-01] MEDS: ACETAMINOPHEN 650 mg PER 20.3 mL UD PO PRN (17:57)
[2023-08-01] MEDS: INSULIN LANTUS (GLARGINE) 1 /0.01ml (100units/ml) SC SCH (22:11)
[2023-08-02] VITALS (18 sets, daily range): BP systolic 97–148; BP diastolic 34–98; PULSE 64–87; RESP 14–19; TEMP 97.4–98; O2SAT 94–100
[2023-08-02] MEDS: MEROPENEM 1GM IVPB 100 ML IV SCH ×2 (05:00→10:33)
[2023-08-02] MEDS: LEVOTHYROXINE SODIUM 88 MCG TAB PO SCH (05:53)
[2023-08-02] MEDS: ACCU-CHEK COMFORT CURVE STRIP VI SCH ×4 (05:58→22:10)
[2023-08-02] MEDS: IPRATROPIUM BROM 0.5 MG/2.5ML INH SOL NEB SCH ×5 (06:12→22:20)
[2023-08-02] MEDS: ALBUTEROL MEDNEB 2.5 mg/3ml NEB NEB SCH ×5 (06:12→22:20)
[2023-08-02] MEDS: InsuLIN REG 1unit/0.01ml Soln (100units/ml) SC SCH ×4 (06:21→22:08)
[2023-08-02] MEDS: PANTOPRAZOLE 40 MG/10 ML VIAL INJ IV SCH (10:26)
[2023-08-02] MEDS: NIFEdipine ER 30 MG TAB PO SCH (10:27)
[2023-08-02] MEDS: METOPROLOL TARTRATE 25 MG TAB PO SCH ×2 (10:27→21:58)
[2023-08-02] MEDS: LACTULOSE 20Gm/30ML SOLN PO PRN (10:28)
[2023-08-02] MEDS: FUROSEMIDE 40 MG TAB PO SCH (10:28)
[2023-08-02] MEDS: HEPARIN SODIUM (PORCINE) 5000 UNITS/ML 1ML VIAL SC SCH ×2 (10:39→22:00)
[2023-08-02] MEDS: INSULIN LANTUS (GLARGINE) 1 /0.01ml (100units/ml) SC SCH (22:09)
[2023-08-03] VITALS (13 sets, daily range): BP systolic 109–121; BP diastolic 50–54; PULSE 67–89; RESP 16–17; TEMP 97.6–98.5; O2SAT 93–100
[2023-08-03] MEDS: ACCU-CHEK COMFORT CURVE STRIP VI SCH ×4 (06:08→22:32)
[2023-08-03] MEDS: LEVOTHYROXINE SODIUM 88 MCG TAB PO SCH (06:08)
[2023-08-03] MEDS: IPRATROPIUM BROM 0.5 MG/2.5ML INH SOL NEB SCH ×5 (06:19→21:58)
[2023-08-03] MEDS: InsuLIN REG 1unit/0.01ml Soln (100units/ml) SC SCH ×4 (06:19→22:34)
[2023-08-03] MEDS: ALBUTEROL MEDNEB 2.5 mg/3ml NEB NEB SCH ×5 (06:19→21:58)
[2023-08-03] MEDS: HEPARIN SODIUM (PORCINE) 5000 UNITS/ML 1ML VIAL SC SCH ×2 (09:59→22:00)
[2023-08-03] MEDS: METOPROLOL TARTRATE 25 MG TAB PO SCH ×2 (09:59→22:37)
[2023-08-03] MEDS: FUROSEMIDE 40 MG TAB PO SCH (10:00)
[2023-08-03] MEDS: ACETAMINOPHEN 650 mg PER 20.3 mL UD PO PRN (12:33)
[2023-08-03] MEDS: LACTULOSE 20Gm/30ML SOLN PO PRN (18:53)
[2023-08-03] MEDS: INSULIN LANTUS (GLARGINE) 1 /0.01ml (100units/ml) SC SCH (22:32)
[2023-08-04] VITALS (14 sets, daily range): BP systolic 100–145; BP diastolic 53–67; PULSE 68–80; RESP 16–20; TEMP 97.3–98.2; O2SAT 93–100
[2023-08-04] MEDS: LEVOTHYROXINE SODIUM 88 MCG TAB PO SCH (06:33)
[2023-08-04] MEDS: LACTULOSE 20Gm/30ML SOLN PO PRN (06:33)
[2023-08-04] MEDS: ACCU-CHEK COMFORT CURVE STRIP VI SCH ×4 (06:33→22:21)
[2023-08-04] MEDS: InsuLIN REG 1unit/0.01ml Soln (100units/ml) SC SCH ×4 (06:39→22:19)
[2023-08-04] MEDS: IPRATROPIUM BROM 0.5 MG/2.5ML INH SOL NEB SCH ×5 (06:51→22:22)
[2023-08-04] MEDS: ALBUTEROL MEDNEB 2.5 mg/3ml NEB NEB SCH ×5 (06:52→22:22)
[2023-08-04] MEDS: ACETAMINOPHEN 650 mg PER 20.3 mL UD PO PRN ×3 (09:25→20:19)
[2023-08-04] MEDS: HEPARIN SODIUM (PORCINE) 5000 UNITS/ML 1ML VIAL SC SCH ×2 (09:28→22:12)
[2023-08-04] MEDS: metFORMIN HYDROCHLORIDE 850 MG TAB PO SCH ×2 (09:32→18:43)
[2023-08-04] MEDS: FUROSEMIDE 40 MG TAB PO SCH (09:32)
[2023-08-04] MEDS: METOPROLOL TARTRATE 25 MG TAB PO SCH ×2 (09:32→22:11)
[2023-08-04] MEDS: INSULIN LANTUS (GLARGINE) 1 /0.01ml (100units/ml) SC SCH (22:21)
[2023-08-05] VITALS (12 sets, daily range): BP systolic 98–132; BP diastolic 51–70; PULSE 72–96; RESP 16–20; TEMP 36.2; O2SAT 94–100
[2023-08-05 02:06] LABS: Vitamin D 25-Hydroxy 60 ng/mL (.); Vitamin D-2 25-Hydroxy <1.0 ng/mL (.); Vitamin D-3 25-Hydroxy 60 ng/mL (.)
[2023-08-05] MEDS: LEVOTHYROXINE SODIUM 88 MCG TAB PO SCH (06:04)
[2023-08-05] MEDS: ALBUTEROL MEDNEB 2.5 mg/3ml NEB NEB SCH ×2 (06:05→11:13)
[2023-08-05] MEDS: IPRATROPIUM BROM 0.5 MG/2.5ML INH SOL NEB SCH ×2 (06:05→11:13)
[2023-08-05] MEDS: ACCU-CHEK COMFORT CURVE STRIP VI SCH ×4 (06:42→22:08)
[2023-08-05] MEDS: InsuLIN REG 1unit/0.01ml Soln (100units/ml) SC SCH ×4 (06:42→22:08)
[2023-08-05] MEDS: HEPARIN SODIUM (PORCINE) 5000 UNITS/ML 1ML VIAL SC SCH ×2 (09:09→21:28)
[2023-08-05] MEDS: METOPROLOL TARTRATE 25 MG TAB PO SCH ×2 (09:10→21:28)
[2023-08-05] MEDS: FUROSEMIDE 40 MG TAB PO SCH (09:10)
[2023-08-05] MEDS: metFORMIN HYDROCHLORIDE 850 MG TAB PO SCH ×2 (09:14→18:58)
[2023-08-05] MEDS: MORPHINE SULFATE INJ 2 MG/ml SYRG IV PRN (11:41)
[2023-08-05] MEDS ORDERED: LEVO-177 PO (11:48)
[2023-08-05] MEDS ORDERED: LANC-268 XX (11:48)
[2023-08-05] MEDS ORDERED: FURO40TA4 PO (11:48)
[2023-08-05] MEDS ORDERED: INSLANTI SC (11:48)
[2023-08-05] MEDS ORDERED: INSU1MIS36 XX (11:48)
[2023-08-05] MEDS: ACETAMINOPHEN 650 mg PER 20.3 mL UD PO PRN (13:22)
[2023-08-05] MEDS: INSULIN LANTUS (GLARGINE) 1 /0.01ml (100units/ml) SC SCH (22:10)
[2023-08-06] MEDS: ACETAMINOPHEN 650 mg PER 20.3 mL UD PO PRN ×2 (00:53→13:39)
[2023-08-06 04:50] VITALS: BP 111/61; PULSE 80; RESP 18; TEMP 97.6; O2SAT 95
[2023-08-06] MEDS: ACCU-CHEK COMFORT CURVE STRIP VI SCH ×4 (06:31→21:56)
[2023-08-06] MEDS: InsuLIN REG 1unit/0.01ml Soln (100units/ml) SC SCH ×4 (06:31→21:58)
[2023-08-06] MEDS: LEVOTHYROXINE SODIUM 88 MCG TAB PO SCH (06:31)
[2023-08-06 08:00] VITALS: PULSE 91; RESP 15; O2SAT 94
[2023-08-06] MEDS: metFORMIN HYDROCHLORIDE 850 MG TAB PO SCH ×2 (08:27→18:09)
[2023-08-06 09:00] VITALS: BP 131/76; PULSE 91; RESP 15; TEMP 98.7; O2SAT 94
[2023-08-06] MEDS: METOPROLOL TARTRATE 25 MG TAB PO SCH ×2 (10:08→22:02)
[2023-08-06] MEDS: FUROSEMIDE 40 MG TAB PO SCH (10:09)
[2023-08-06] MEDS: HEPARIN SODIUM (PORCINE) 5000 UNITS/ML 1ML VIAL SC SCH ×2 (10:15→22:01)
[2023-08-06 17:00] VITALS: BP 103/63; PULSE 76; RESP 14; TEMP 98.6; O2SAT 97
[2023-08-06 20:00] VITALS: PULSE 90; RESP 19; O2SAT 97
[2023-08-06 22:00] VITALS: BP 126/54; PULSE 90; RESP 19; TEMP 97.8; O2SAT 97
[2023-08-06] MEDS: INSULIN LANTUS (GLARGINE) 1 /0.01ml (100units/ml) SC SCH (22:00)
[2023-08-07] VITALS (7 sets, daily range): BP systolic 104–139; BP diastolic 50–64; PULSE 76–86; RESP 16–20; TEMP 97.5–98; O2SAT 94–99
[2023-08-07] MEDS: ACCU-CHEK COMFORT CURVE STRIP VI SCH ×4 (06:05→21:52)
[2023-08-07] MEDS: InsuLIN REG 1unit/0.01ml Soln (100units/ml) SC SCH ×4 (06:06→21:53)
[2023-08-07] MEDS: LEVOTHYROXINE SODIUM 88 MCG TAB PO SCH (06:19)
[2023-08-07] MEDS: metFORMIN HYDROCHLORIDE 850 MG TAB PO SCH ×2 (08:28→18:42)
[2023-08-07] MEDS: METOPROLOL TARTRATE 25 MG TAB PO SCH ×2 (09:45→21:49)
[2023-08-07] MEDS: FUROSEMIDE 40 MG TAB PO SCH (09:47)
[2023-08-07] MEDS: HEPARIN SODIUM (PORCINE) 5000 UNITS/ML 1ML VIAL SC SCH ×2 (09:54→21:52)
[2023-08-07] MEDS: ACETAMINOPHEN 650 mg PER 20.3 mL UD PO PRN (19:01)
[2023-08-07] MEDS: INSULIN LANTUS (GLARGINE) 1 /0.01ml (100units/ml) SC SCH (21:53)
[2023-08-08 05:00] VITALS: BP 143/48; PULSE 75; RESP 17; TEMP 97.5; O2SAT 98
[2023-08-08 06:09] LABS: Anion Gap 9 (5-15); Carbon Dioxide 24 mmol/L (20-30); Chloride 103 mmol/L (98-107); Potassium 3.9 mmol/L (3.5-5.1); Sodium 136 mmol/L (136-145)
[2023-08-08] MEDS: ACCU-CHEK COMFORT CURVE STRIP VI SCH ×3 (06:09→17:00)
[2023-08-08] MEDS: InsuLIN REG 1unit/0.01ml Soln (100units/ml) SC SCH ×3 (06:09→17:00)
[2023-08-08] MEDS: LEVOTHYROXINE SODIUM 88 MCG TAB PO SCH (06:09)
[2023-08-08 06:10] LABS: Calcium 9.2 mg/dL (8.7-10.4)
[2023-08-08 06:16] LABS: Blood Urea Nitrogen 8 mg/dL (9-23); Glucose 54 mg/dL (74-106)
[2023-08-08 06:36] LABS: Basophils # (auto) 0 10 ^3/uL (0-0.2); Basophils % (auto) 0.6 % (0.0-2.0); Eosinophils # (auto) 0 10 ^3/uL (0-0.8); Eosinophils % (auto) 0.3 % (0.0-7.0); Hematocrit 33.4 % (36.0-46.0); Hemoglobin 11.1 g/dL (12.2-16.2); Lymphocytes # (auto) 2.4 10 ^3/uL (0.4-5.4); Lymphocytes % (auto) 35.6 % (10.0-50.0); Mean Corpuscular Hemoglobin 30.1 pg (28.0-32.0); Mean Corpuscular Hgb Conc. 33.3 g/dL (32.0-36.0); Mean Corpuscular Volume 90.2 fL (80.0-100.0); Monocytes % (auto) 14.4 % (0.0-12.0); Neutrophils # (auto) 3.3 10 ^3/uL (1.6-8.6); Neutrophils % (auto) 49.1 % (37.0-80.0); Nucleated Red Blood Cells % 0.1 %; Red Cell Distribution Width 17.8 % (11.8-14.3); White Blood Cell 6.7 10^3/uL (4.4-10.8)
[2023-08-08 08:00] VITALS: O2SAT 99
[2023-08-08] MEDS: metFORMIN HYDROCHLORIDE 850 MG TAB PO SCH (08:00)
[2023-08-08 09:00] VITALS: BP 124/61; PULSE 80; RESP 18; TEMP 97.7; O2SAT 100
[2023-08-08] MEDS: FUROSEMIDE 40 MG TAB PO SCH (09:34)
[2023-08-08] MEDS: METOPROLOL TARTRATE 25 MG TAB PO SCH (09:35)
[2023-08-08] MEDS: HEPARIN SODIUM (PORCINE) 5000 UNITS/ML 1ML VIAL SC SCH (09:41)
[2023-08-08] MEDS: ACETAMINOPHEN 650 mg PER 20.3 mL UD PO PRN (13:35)
== END 2023-08-08 17:10 | disposition home or self-care (01) | DRG 870 ==
LOC: ER 09:18 → EDBD 09:18 → TELE 13:29 → ICU WEST 15:12 → DOU IN ICU 07-26 04:45 → CENTRAL 07-28 20:37
PROVIDERS: ADMIT Nurse Practitioner Family; ATTEND Nurse Practitioner Acute Care
PROC: 5A1955Z Respiratory Ventilation, Greater than 96 Consecutive Hours (ICD-10-PCS; principal; 2023-07-09)
PROC: 0BH17EZ Insertion of Endotracheal Airway into Trachea, Via Natural or Artificial Opening (ICD-10-PCS; 2023-07-09)
PROC: 02HV33Z Insertion of Infusion Device into Superior Vena Cava, Percutaneous Approach (ICD-10-PCS; 2023-07-09)
PROC: B548ZZA Ultrasonography of Superior Vena Cava, Guidance (ICD-10-PCS; 2023-07-09)
PROC: 02HV33Z Insertion of Infusion Device into Superior Vena Cava, Percutaneous Approach (ICD-10-PCS; 2023-07-10)
PROC: B548ZZA Ultrasonography of Superior Vena Cava, Guidance (ICD-10-PCS; 2023-07-10)
PROC: B24BZZ4 Ultrasonography of Heart with Aorta, Transesophageal (ICD-10-PCS; 2023-07-13)
PROC: 5A09357 Assistance with Respiratory Ventilation, Less than 24 Consecutive Hours, Continuous Positive Airway Pressure (ICD-10-PCS; 2023-07-17)
DX: A41.9 Sepsis, unspecified organism (principal); G93.41 Metabolic encephalopathy; R65.21 Severe sepsis with septic shock; I21.A1 Myocardial infarction type 2; N17.0 Acute kidney failure with tubular necrosis; R57.0 Cardiogenic shock; J96.01 Acute respiratory failure with hypoxia; I50.31 Acute diastolic (congestive) heart failure; E87.20 Acidosis, unspecified; N39.0 Urinary tract infection, site not specified; I47.19 Other supraventricular tachycardia; E87.0 Hyperosmolality and hypernatremia; E87.1 Hypo-osmolality and hyponatremia; B69.0 Cysticercosis of central nervous system; E87.5 Hyperkalemia; Z68.36 Body mass index [BMI] 36.0-36.9, adult; E87.8 Other disorders of electrolyte and fluid balance, not elsewhere classified; D63.8 Anemia in other chronic diseases classified elsewhere; E66.01 Morbid (severe) obesity due to excess calories; I11.0 Hypertensive heart disease with heart failure; L89.152 Pressure ulcer of sacral region, stage 2; I48.0 Paroxysmal atrial fibrillation; E87.70 Fluid overload, unspecified; I27.20 Pulmonary hypertension, unspecified; I08.1 Rheumatic disorders of both mitral and tricuspid valves; E86.0 Dehydration; Z86.73 Personal history of transient ischemic attack (TIA), and cerebral infarction without residual deficits; Z68.37 Body mass index [BMI] 37.0-37.9, adult; Z89.429 Acquired absence of other toe(s), unspecified side; Z83.3 Family history of diabetes mellitus; Z89.422 Acquired absence of other left toe(s)
CPT/HCPCS: 31720; 36415; 36600; 70450; 71045; 73700; 76775; 80048; 80053; 80202; 80307; 80320; 80329; 81001; 82040; 82306; 82550; 82570; 82607; 82728; 82805; 82962; 83036; 83540; 83550; 83605; 83735; 83880; 84100; 84132; 84156; 84300; 84443; 84478; 84484; 84550; 85007; 85025; 85027; 85610; 85730; 86706; 87040; 87070; 87077; 87081; 87086; 87088; 87186; 87205; 87340; 90935; 92507; 92610; 93005; 93306; 93312; 94002; 94003; 94640; 94660; 96374; 96375; 97110; 97116; 97163; 97530; A4618; C9113; G0378; J0696; J1642; J1815; J2001; J2185; J2248; J2250; J2543; J2704; J3480; J7042; J7060